=== PATIENT | female | born 1940 | race African-American/Black ===

== ENCOUNTER 2017-01-22 18:35 | Inpatient (IN) | payer MEDICARE, BC ==
[~2017-01-22] VITALS: Ht 160 cm; Wt 41.3 kg
[2017-01-22] MEDS ORDERED: SIMVASTATIN40 MG ORAL (18:48)
[2017-01-22] MEDS ORDERED: NEXIUM40 MG ORAL (18:48)
[2017-01-22] MEDS ORDERED: BENICAR5 MG ORAL (18:48)
[2017-01-22] MEDS ORDERED: KLOR-CON20 MEQ ORAL (18:48)
[2017-01-22] MEDS ORDERED: ASPIR 8181 MG ORAL (18:48)
[2017-01-22] MEDS ORDERED: B-121000 MCG PO (18:48)
[2017-01-22] MEDS ORDERED: VITAMIN D1000 UNI1 ORAL (18:48)
[2017-01-22 18:52] VITALS: BP 99/58
[2017-01-22] MEDS ORDERED: Calcium Gluconate 1gm/10ml vial IVP ONE (19:00)
[2017-01-22] MEDS ORDERED: Diltiazem 25mg/5ml IV ONE ×2 (19:00→19:15)
[2017-01-22 19:03] LABS: BASOPHILS % (AUTO) 1.4 % (0.0-2.0); EOSINOPHILS % (AUTO) 7.3 % (0.0-3.0); LYMPHOCYTES % (AUTO) 32.7 % (20.0-45.0); MEAN CORPUSCULAR HEMOGLOBIN 35.8 PG (27.0-31.0); MEAN CORPUSCULAR HGB CONC 36.3 G/DL (32.0-36.0); MEAN CORPUSCULAR VOLUME 99 FL (80-99); MEAN PLATELET VOLUME 8.7 FL (6.5-10.1); MONOCYTES % (AUTO) 17.3 % (1.0-10.0); NEUTROPHILS % (AUTO) 41.4 % (45.0-75.0); PLATELET COUNT 161 K/UL (150-450); RED BLOOD COUNT 4.45 M/UL (4.20-5.40); RED CELL DISTRIBUTION WIDTH 12.6 % (11.6-14.8); WHITE BLOOD COUNT 6.8 K/UL (4.8-10.8)
[2017-01-22 19:14] LABS: TROPONIN I < 0.30 ng/mL (<=0.30)
[2017-01-22 19:15] LABS: ALANINE AMINOTRANSFERASE 58 U/L (3-33); ANION GAP 18 (5-15); ASPARTATE AMINO TRANSFERASE 56 U/L (5-40); CALCIUM 10.2 mg/dL (8.6-10.2); CARBON DIOXIDE 25 mEQ/L (20-30); CHLORIDE 100 mEQ/L (98-107); CREATININE 1.3 mg/dL (0.5-0.9); HEMOLYSIS 15; POTASSIUM 4.2 mEQ/L (3.4-4.9); SODIUM 143 mEQ/L (135-145); TOTAL PROTEIN 7.5 g/dL (6.6-8.7)
[2017-01-22 19:25] LABS: CKMB 1.7 ng/mL (< 3.8)
[2017-01-22] MEDS ORDERED: Metoprolol 5mg/5ml Inj IVP ONE (19:30)
[2017-01-22] MEDS ORDERED: PATADAY2.5 ML OP (20:13)
[2017-01-22] MEDS ORDERED: REFRESH CLASSI1 EACH OP (20:14)
[2017-01-22] MEDS ORDERED: CENTRUM SILVER1 EAC4 PO (20:16)
[2017-01-22 20:52] VITALS: BP 111/89
--- NOTE | 2017-01-22 21:12 | Emergency Room Report ---
History of Present Illness General Chief Complaint: Chest Pain Source: Medical Record Present Illness HPI 76-year-old female presents ED complaining of chest pain. States chest pain started around 4 PM while at rest. Pain is pressure-like, left-sided, 7/10. Patient was given aspirin and nitroglycerin by EMS without significant relief. EKG shows A. fib with RVR. Patient is not aware that she has a history of A. fib. Denies shortness of breath. Denies fevers or chills or cough. Denies smoking or drug use. No other aggravating relieving factors. Denies any other associated symptoms Allergies: Coded Allergies: PENICILLINS (Verified Allergy, Mild, 08/30/10) SHELLFISH (Verified Allergy, Mild, 08/30/10) SULFA (SULFONAMIDE ANTIBIOTICS) (Verified Allergy, Mild, 08/30/10) PROCAINE (Unverified Allergy, Unknown, 01/22/17) IODINE (Verified Adverse Reaction, Severe, HYPERSENSATIVITY TO CONTRAST, ) LAST TIME PT WAS GIVEN CONTRAST, SHE HAD TO BE GIVEN HIGH DOSE CORTICOSTEROID, PER PT ORDER ADHESIVE TAPE (Verified Adverse Reaction, Intermediate, DRY, ITCHY SKIN, ) PER PT ORDER Uncoded Allergies: NOVACAINE (Allergy, Mild, 08/30/10) Patient History Past Medical History: HTN Past Surgical History: pacemaker Pertinent Family History: none Social History: Denies: alcohol use, drug use, smoking Now: No Immunizations: UTD Reviewed Nursing Documentation: PMH: Agreed, PSxH: Agreed Nursing Documentation-PMH Past Medical History: No History, Except For Hx Hypertension: Yes Hx Pacemaker: Yes Review of Systems All Other Systems: negative except mentioned in HPI Physical Exam Vital Signs Date Time Temp Pulse Resp B/P Pulse Ox O2 Delivery O2 Flow Rate FiO2 01/22/17 18:32 98.2 86 20 100/68 98 Room Air Sp02 EP Interpretation: reviewed, normal General Appearance: no apparent distress, alert, GCS 15, non-toxic Head: normocephalic, atraumatic Eyes: bilateral eye PERRL, bilateral eye normal inspection ENT: hearing grossly normal, normal pharynx, no angioedema, normal voice Neck: full range of motion, supple/symm/no masses Respiratory: chest non-tender, lungs clear, normal breath sounds, speaking full sentences Cardiovascular #1: no edema, tachycardia Cardiovascular #2: 2+ carotid (R), 2+ carotid (L), 2+ radial (R), 2+ radial (L) , 2+ dorsalis pedis (R), 2+ dorsalis pedis (L) Gastrointestinal: normal bowel sounds, non tender, soft, non-distended, no guarding, no rebound Rectal: deferred Genitourinary: normal inspection, no CVA tenderness Musculoskeletal: back normal, gait/station normal, normal range of motion, non- tender Neurologic: alert, oriented x3, responsive, motor strength/tone normal, sensory intact, speech normal Psychiatric: judgement/insight normal, memory normal, mood/affect normal, no suicidal/homicidal ideation Reflexes: 3+ bicep (R), 3+ bicep (L), 3+ tricep (R), 3+ tricep (L), 3+ knee (R) , 3+ knee (L) Skin: normal color, no rash, warm/dry, well hydrated Lymphatic: no adenopathy Procedures Critical Care Time Critical Care Time i. I feel this is a highly complex case requiring extensive working including EKG/Rhythm strip, Xray/CT/US, Blood/urine lab work, repeat exams while in ED, and administration of strong opiates/narcotics for pain control, admission to hospital or close patient follow up. Total time: 30 min bedside evaluation and treatment excludes procedures (EKG). Reason for critical care: afib wtih RVR, hypotension Possible complications: hypotension, hypertension, LA, shock, arrhythmias, metabolic acidosis, end organ damage, respiratory failure. Interventions: labs, IVFs, EKG, CXR. lopressor Course: Patient brought in for chest pain, tachycardic. EKG shows A. fib with RVR to the 150s. Patient slightly hypotensive. Patient given IV fluids. Given Lopressor. Cardioversion achieved. Troponins negative. Consultations: nursing staff, EMS, family Performed by: Dr Mello Tolerated well condition = critical j. because of unstable vital signs this patient had a condition that could potentially threaten life or limb. I feel this is a critical patient who required my full attention while patient was considered critical. Total Critical Care Time excluding procedures was greater than 35 minutes Medical Decision Making Diagnostic Impression: Primary Impression: Atrial fibrillation with RVR Additional Impression: ACS (acute coronary syndrome) ER Course Hospital Course 76-year-old F presents ED complaining of chest tightness. tachycardia Differential diagnoses include: LA/unstable angina, contusion, muscle strain, PTX, rib fracture, pneumonia, Clinical course Patient placed on stretcher. on measurement operator which shows A. fib with RVR. initial BP 98/60. given IVFs. given lopressor. After initial history and physical I ordered labs, EKG, chest x-ray labs reviewed- no leukocytosis, hemoglobin/hematocrit ok, electrolytes okay, troponins negative EKG - afib wtih RVR Chest x-ray- cardiomegaly. pacemaker Cardioversion achieved on reassessment. Case discussed with Dr. Mabry/ [place] and he agreed to accept the patient to his service for further care and support I. I feel this is a highly complex case requiring extensive working including EKG/Rhythm strip, Xray/CT/US, Blood/urine lab work, repeat exams while in ED, and administration of strong opiates/narcotics for pain control, admission to hospital or close patient follow up. Diagnosis - afib with RVR, ACS admitted to telemetry in serious condition Labs Test 01/22/17 18:49 White Blood Count 6.8 K/UL (4.8-10.8) Red Blood Count 4.45 M/UL (4.20-5.40) Hemoglobin 15.9 G/DL (12.0-16.0) Hematocrit 43.9 % (37.0-47.0) Mean Corpuscular Volume 99 FL (80-99) Mean Corpuscular Hemoglobin 35.8 PG (27.0-31.0) Mean Corpuscular Hemoglobin Concent 36.3 G/DL (32.0-36.0) Red Cell Distribution Width 12.6 % (11.6-14.8) Platelet Count 161 K/UL (150-450) Mean Platelet Volume 8.7 FL (6.5-10.1) Neutrophils (%) (Auto) 41.4 % (45.0-75.0) Lymphocytes (%) (Auto) 32.7 % (20.0-45.0) Monocytes (%) (Auto) 17.3 % (1.0-10.0) Eosinophils (%) (Auto) 7.3 % (0.0-3.0) Basophils (%) (Auto) 1.4 % (0.0-2.0) Sodium Level 143 mEQ/L (135-145) Potassium Level 4.2 mEQ/L (3.4-4.9) Chloride Level 100 mEQ/L (98-107) Carbon Dioxide Level 25 mEQ/L (20-30) Anion Gap 18 (5-15) Blood Urea Nitrogen 31 mg/dL (7-23) Creatinine 1.3 mg/dL (0.5-0.9) Estimat Glomerular Filtration Rate mL/min (>60) Glucose Level 92 mg/dL (74-106) Calcium Level 10.2 mg/dL (8.6-10.2) Total Bilirubin < 0.2 mg/dL (0.0-1.2) Aspartate Amino Transf (AST/SGOT) 56 U/L (5-40) Alanine Aminotransferase (ALT/SGPT) 58 U/L (3-33) Alkaline Phosphatase 78 U/L (35-104) Total Creatine Kinase 87 U/L (26-140) Creatine Kinase MB 1.7 ng/mL (< 3.8) Creatine Kinase MB Relative Index 1.9 Troponin I < 0.30 ng/mL (<=0.30) Pro-B-Type Natriuretic Peptide 73 pg/mL (0-450) Total Protein 7.5 g/dL (6.6-8.7) Albumin 3.9 g/dL (3.5-5.2) Globulin 3.6 g/dL Albumin/Globulin Ratio 1.0 (1.0-2.7) EKG Diagnostic Results Rate: tachycardiac Rhythm: other - afib with RVR ST Segments: no acute changes ASA given to the pt in ED: No - given by ems Rhythm Strip Diag. Results EP Interpretation: yes Rhythm: no PVC's, no ectopy Chest X-Ray Diagnostic Results EP Interpretation: Yes Findings: no pneumothorax, no acute cardiopulmonary disease, other - cardiomegaly. pacemaker Number of Views: 1 Last Vital Signs Date Time Temp Pulse Resp B/P Pulse Ox O2 Delivery O2 Flow Rate FiO2 01/22/17 19:31 132 104/59 01/22/17 18:57 20 Room Air 01/22/17 18:52 98.2 99 Status: improved Disposition: ADMITTED INPATIENT Condition: Serious Referrals: NON PHYSICIAN (PCP) MONET MELLO M.D. Jan 22, 2017 21:12
[2017-01-22] MEDS ORDERED: Morphine Sulfate 4mg/ml Inj IVP PRN (21:45)
[2017-01-22] MEDS ORDERED: Morphine Sulfate 2mg/ml Inj IVP PRN (21:45)
[2017-01-22] MEDS ORDERED: Metoprolol 25mg tab ORAL SCH ×2 (21:45)
[2017-01-22] MEDS ORDERED: Miralax 17gm pkt ORAL PRN (21:45)
[2017-01-22] MEDS ORDERED: Metoprolol 5mg/5ml Inj IVPB PRN (21:45)
--- NOTE | 2017-01-22 22:38 | History and Physical ---
History of Present Illness General Date patient seen: Jan 22, 2017 Time patient seen: 19:30 Reason for Hospitalization: Chest Pain, Afib w/ RVR Present Illness HPI 76 y/o female with pmh of HTN, HLD, pAfib, sick sinus syndrome s/p dual-chamber pacemaker implantation (March 2012), GERD, GALEN who presents with chest pain. Pt states chest pain started today after she met up with a friend for lunch. Described as pressure-like and associated with palpitations. No associated SOB, f/c, n/v, diaphoresis. No radiation of pain. Pt states she has had similar episodes before. Pt also c/o chronic abd pain described as burning sensation. Pt states she does not do much activity/exercise. She does get fatigued after walking abt 6-7min. In ED, pt noted to be in Afib w/ HR up to 140s. Given MTP 5m IVP w/ HR improvement to 110s. Allergies: Coded Allergies: PENICILLINS (Verified Allergy, Mild, 08/30/10) SHELLFISH (Verified Allergy, Mild, 08/30/10) SULFA (SULFONAMIDE ANTIBIOTICS) (Verified Allergy, Mild, 08/30/10) PROCAINE (Unverified Allergy, Unknown, 01/22/17) IODINE (Verified Adverse Reaction, Severe, HYPERSENSATIVITY TO CONTRAST, ) LAST TIME PT WAS GIVEN CONTRAST, SHE HAD TO BE GIVEN HIGH DOSE CORTICOSTEROID, PER PT ORDER ADHESIVE TAPE (Verified Adverse Reaction, Intermediate, DRY, ITCHY SKIN, ) PER PT ORDER Uncoded Allergies: NOVACAINE (Allergy, Mild, 08/30/10) Medication History Scheduled Aspirin* (Aspir 81*), 81 MG ORAL DAILY, (Reported) Cholecalciferol (Vitamin D3)* (Vitamin D*), 2,000 UNITS ORAL DAILY, (Reported) Cyanocobalamin (Vitamin B-12) (B-12), 1,000 MCG PO DAILY, (Reported) Esomeprazole Magnesium (Nexium), 40 MG ORAL DAILY, (Reported) Mu-Vits-Min Th/Lycopene/Lutein (Centrum Silver Tablet), 1 EACH PO DAILY, ( Reported) Olmesartan Medoxomil (Benicar), 5 MG ORAL DAILY, (Reported) Olopatadine Hcl (Pataday), 2.5 ML OP DAILY, (Reported) Polyvinyl Alcohol/Povidone/Pf (Refresh Classic Eye Drops), 1 EACH OP BID, ( Reported) Simvastatin (Zocor), 40 MG ORAL BEDTIME, (Reported) Patient History Healthcare decision maker Resuscitation status Advanced Directive on File No Past Medical/Surgical History Past Medical/Surgical History: (1) GALEN (obstructive sleep apnea) (2) GERD (gastroesophageal reflux disease) (3) History of cholecystectomy (4) Paroxysmal a-fib (5) Sick sinus syndrome (6) Pacemaker (7) HTN (hypertension) (8) HLD (hyperlipidemia) Family History Family History: FH: stomach cancer Social History Social History: (1) No significant social history Review of Systems ROS Narrative CONSTITUTIONAL: No weight loss, fever, chills, weakness, +fatigue HEENT: Eyes: No visual loss, blurred vision, double vision or yellow sclerae. Ears, Nose, Throat: No hearing loss, sneezing, congestion, runny nose or sore throat. SKIN: No rash or itching. CARDIOVASCULAR: No chest pain, chest pressure or chest discomfort. No palpitations or edema. RESPIRATORY: No shortness of breath, cough or sputum. GASTROINTESTINAL: No anorexia, nausea, vomiting or diarrhea. No abdominal pain or blood. NEUROLOGICAL: No headache, dizziness, syncope, paralysis, ataxia, numbness or tingling in the extremities. No change in bowel or bladder control. MUSCULOSKELETAL: No muscle, back pain, joint pain or stiffness. HEMATOLOGIC: No anemia, bleeding or bruising. LYMPHATICS: No enlarged nodes. No history of splenectomy. PSYCHIATRIC: No history of depression or anxiety. ENDOCRINOLOGIC: No reports of sweating, cold or heat intolerance. No polyuria or polydipsia. ALLERGIES: No history of asthma, hives, eczema or rhinitis. Physical Exam Physical Exam Narrative General: alert, cooperative, no distress, appears stated age Head: normocephalic, without obvious abnormality, atraumatic Eyes: conjunctivae/corneas clear. PERRL, EOM's intact Throat: lips, mucosa, and tongue normal. MMM Neck: supple, symmetrical, trachea midline, and no JVD Lungs: clear to auscultation bilaterally Heart: irregularly irregular rhythm, S1, S2 normal, no murmur, click, rub or gallop Abdomen: soft, non-tender, non-distended, bowel sounds normal; no masses or organomegaly Extremities: extremities normal, atraumatic, no cyanosis or edema Pulses: 2+ and symmetric Skin: skin color, texture, turgor normal; no rashes or lesions Neurologic: grossly normal, no focal deficits Last 24 Hour Vital Signs Date Time Temp Pulse Resp B/P Pulse Ox O2 Delivery O2 Flow Rate FiO2 01/22/17 19:31 132 104/59 01/22/17 18:57 130 20 Room Air 01/22/17 18:52 98.2 130 20 99/58 99 Room Air 01/22/17 18:32 98.2 86 20 100/68 98 Room Air Laboratory Tests Test 01/22/17 18:49 White Blood Count 6.8 K/UL (4.8-10.8) Red Blood Count 4.45 M/UL (4.20-5.40) Hemoglobin 15.9 G/DL (12.0-16.0) Hematocrit 43.9 % (37.0-47.0) Mean Corpuscular Volume 99 FL (80-99) Mean Corpuscular Hemoglobin 35.8 PG (27.0-31.0) H Mean Corpuscular Hemoglobin Concent 36.3 G/DL (32.0-36.0) H Red Cell Distribution Width 12.6 % (11.6-14.8) Platelet Count 161 K/UL (150-450) Mean Platelet Volume 8.7 FL (6.5-10.1) Neutrophils (%) (Auto) 41.4 % (45.0-75.0) L Lymphocytes (%) (Auto) 32.7 % (20.0-45.0) Monocytes (%) (Auto) 17.3 % (1.0-10.0) H Eosinophils (%) (Auto) 7.3 % (0.0-3.0) H Basophils (%) (Auto) 1.4 % (0.0-2.0) Sodium Level 143 mEQ/L (135-145) Potassium Level 4.2 mEQ/L (3.4-4.9) Chloride Level 100 mEQ/L (98-107) Carbon Dioxide Level 25 mEQ/L (20-30) Anion Gap 18 (5-15) H Blood Urea Nitrogen 31 mg/dL (7-23) H Creatinine 1.3 mg/dL (0.5-0.9) H Estimat Glomerular Filtration Rate mL/min (>60) Glucose Level 92 mg/dL (74-106) Calcium Level 10.2 mg/dL (8.6-10.2) Total Bilirubin < 0.2 mg/dL (0.0-1.2) Aspartate Amino Transf (AST/SGOT) 56 U/L (5-40) H Alanine Aminotransferase (ALT/SGPT) 58 U/L (3-33) H Alkaline Phosphatase 78 U/L (35-104) Total Creatine Kinase 87 U/L (26-140) Creatine Kinase MB 1.7 ng/mL (< 3.8) Creatine Kinase MB Relative Index 1.9 Troponin I < 0.30 ng/mL (<=0.30) Pro-B-Type Natriuretic Peptide 73 pg/mL (0-450) Total Protein 7.5 g/dL (6.6-8.7) Albumin 3.9 g/dL (3.5-5.2) Globulin 3.6 g/dL Albumin/Globulin Ratio 1.0 (1.0-2.7) Height (Feet): 5 Height (Inches): 3.00 Weight (Pounds): 197 Medications Current Medications Medications (Trade) Dose Ordered Sig/Kenneth Route PRN Reason Start Time Stop Time Status Last Admin Dose Admin Acetaminophen (Tylenol) 650 mg Q4H PRN ORAL Mild Pain (Pain Scale 1-3) 01/22/17 21:45 02/21/17 21:44 UNV Aspirin (Ecotrin) 325 mg DAILY ORAL 01/23/17 09:00 02/22/17 08:59 UNV Bisacodyl (Dulcolax) 10 mg DAILYPRN PRN RECTAL Constipation 01/22/17 21:45 02/21/17 21:44 UNV Dextrose (Dextrose 50%) STAT PRN IV Hypoglycemia 01/22/17 21:45 02/21/17 21:44 UNV Diphenhydramine HCl (Benadryl) 25 mg Q6H PRN ORAL Itching/Pruritis 01/22/17 21:45 02/21/17 21:44 UNV Docusate Sodium (Colace) 100 mg EVERY 12 HOURS ORAL 01/23/17 09:00 02/22/17 08:59 UNV Heparin Sodium (Porcine) (Heparin 5000 units/ml) 5,000 units EVERY 8 HOURS SUBQ 01/22/17 22:00 02/21/17 21:59 UNV Metoprolol Tartrate (Lopressor) 5 mg Q6HR PRN IVPB HR>140 01/22/17 21:45 02/21/17 21:44 UNV Metoprolol Tartrate (Lopressor) 25 mg Q6HR ORAL 01/22/17 21:45 02/21/17 21:44 UNV Morphine Sulfate (Morphine Sulfate) 2 mg Q4H PRN IVP Moderate Pain (Pain Scale 4-6) 01/22/17 21:45 01/29/17 21:44 UNV Morphine Sulfate (Morphine Sulfate) 4 mg Q4H PRN IVP Severe Pain (Pain Scale 7-10) 01/22/17 21:45 01/29/17 21:44 UNV Ondansetron HCl (Zofran) 4 mg Q6H PRN IVP Nausea & Vomiting 01/22/17 21:45 02/21/17 21:44 UNV Pantoprazole (Protonix) 40 mg DAILY ORAL 01/23/17 09:00 02/22/17 08:59 UNV Polyethylene Glycol (Miralax) 17 gm DAILYPRN PRN ORAL Constipation 01/22/17 21:45 02/21/17 21:44 UNV Assessment/Plan Problem List: (1) Atrial fibrillation with RVR ICD Codes: I48.91 - Unspecified atrial fibrillation SNOMED: 486660323550069 (2) Chest pain ICD Codes: R07.9 - Chest pain, unspecified SNOMED: 29459169 (3) Sick sinus syndrome ICD Codes: I49.5 - Sick sinus syndrome SNOMED: 12057482 (4) Pacemaker ICD Codes: Z95.0 - Presence of cardiac pacemaker SNOMED: 575708479, 570494247 (5) HTN (hypertension) ICD Codes: I10 - Essential (primary) hypertension SNOMED: 93901268 (6) HLD (hyperlipidemia) ICD Codes: E78.5 - Hyperlipidemia, unspecified SNOMED: 50901770 Status: stable Assessment/Plan Admit to inpt Monitor on tele Trend trop/EKG Check TTE Start MTP 25mg q6h MTP 5mg IVPB q6h PRN SBP>140 Cont home meds Cardiology consult ASA 325mg qd Pt is not on anticoagulation 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 Unclear why she is not as CHADS2-vasc score of 4 Pain control, bowel regimen, supportive care DVT Prophylaxis: HSQ Code Status: Full Hospital Classification Declaration: Based on this initial evaluation, and depending on the patient's clinical course, I anticipate that this patient will require hospitalization for 2-3 days for chest pain, Afib w/ RVR, and close respiratory/hemodynamic monitoring. Disposition: Once the patient is stable to leave the hospital, I anticipate the patient will likely be discharged to the following environment: home with HH vs SNF I spent 70 minutes on this patient's case, and 37 minutes were dedicated to counseling and/or care coordination. Discussed with patient/family, nursing staff, SW/CM, cardiology regarding clinical status, treatment course, and disposition planning. Time of note may not reflect time of encounter. Charlotte Orellana M.D. Jan 22, 2017 22:38
[2017-01-22 22:52] VITALS: BP 125/89
[2017-01-22] MEDS: Heparin 5000 units/ml inj SUBQ SCH (23:07)
[2017-01-22 23:30] VITALS: BP 95/65
[2017-01-23] VITALS: BP 95/55
[2017-01-23] MEDS: Metoprolol 25mg tab ORAL SCH ×4 (00:53→17:50)
[2017-01-23 02:31] LABS: TROPONIN I < 0.30 ng/mL (<=0.30)
[2017-01-23] MEDS: Heparin 5000 units/ml inj SUBQ SCH ×3 (05:35→21:52)
[2017-01-23 08:00] VITALS: BP 117/61
[2017-01-23] MEDS: Docusate 100mg tablet ORAL SCH ×2 (08:18→20:56)
[2017-01-23] MEDS: Aspirin EC 325mg tab ORAL SCH (08:18)
[2017-01-23] MEDS: Vitamin D 1000 IU Tab ORAL SCH (08:18)
[2017-01-23 09:24] LABS: BASOPHILS % (AUTO) 0.9 % (0.0-2.0); LYMPHOCYTES % (AUTO) 35.7 % (20.0-45.0); MEAN CORPUSCULAR HEMOGLOBIN 32.5 PG (27.0-31.0); MEAN CORPUSCULAR HGB CONC 32.5 G/DL (32.0-36.0); MEAN CORPUSCULAR VOLUME 100 FL (80-99); MEAN PLATELET VOLUME 9.5 FL (6.5-10.1); MONOCYTES % (AUTO) 16.4 % (1.0-10.0); NEUTROPHILS % (AUTO) 37.9 % (45.0-75.0); PLATELET COUNT 173 K/UL (150-450); RED CELL DISTRIBUTION WIDTH 12.9 % (11.6-14.8)
[2017-01-23 09:48] LABS: TROPONIN I < 0.30 ng/mL (<=0.30)
--- NOTE | 2017-01-23 09:50 | Diagnostic Imaging Report ---
Indication: Chest pain Technique: One view of the chest Comparison: none Findings: The heart is enlarged. The lungs and pleural spaces are clear.. There is a bifocal left chest pacemaker. Impression: Cardiomegaly No acute process
[2017-01-23 09:51] LABS: ANION GAP 16 (5-15); CALCIUM 9.9 mg/dL (8.6-10.2); CARBON DIOXIDE 25 mEQ/L (20-30); CHLORIDE 105 mEQ/L (98-107); CHOLESTEROL 188 mg/dL (< 200); CHOLESTEROL/HDL RATIO 4.6 (3.3-4.4); CREATININE 1.1 mg/dL (0.5-0.9); HEMOLYSIS 11; LDL CHOLESTEROL (CALC.) 108 mg/dL (60-99); MAGNESIUM 1.9 mg/dL (1.7-2.5); PHOSPHORUS 3.7 mg/dL (2.5-4.8); POTASSIUM 4.3 mEQ/L (3.4-4.9); SODIUM 146 mEQ/L (135-145)
[2017-01-23 12:00] VITALS: BP 112/68
--- NOTE | 2017-01-23 14:16 | Cardiology Progress Note ---
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 Bc Hicks Objective Last 24 Hour Vital Signs Date Time Temp Pulse Resp B/P Pulse Ox O2 Delivery O2 Flow Rate FiO2 01/23/17 12:09 69 112/68 01/23/17 12:00 68 01/23/17 12:00 97.5 69 20 112/68 98 Room Air 01/23/17 08:00 97.2 70 20 117/61 97 Room Air 01/23/17 08:00 61 01/23/17 05:36 120 86/55 01/23/17 04:00 100 01/23/17 01:43 127 01/23/17 00:53 120 112/65 01/23/17 00:00 97.3 119 20 95/55 96 Room Air 01/22/17 23:30 98.2 120 28 95/65 99 Room Air 01/22/17 22:52 98.2 120 28 125/89 99 Room Air 01/22/17 22:30 98.2 120 27 125/89 99 Room Air 01/22/17 20:52 98.2 111 25 111/89 99 Room Air 01/22/17 19:31 132 104/59 01/22/17 18:57 130 20 Room Air 01/22/17 18:52 98.2 130 20 99/58 99 Room Air 01/22/17 18:32 98.2 86 20 100/68 98 Room Air Intake and Output 01/22/17 01/23/17 19:00 07:00 Intake Total 1560 ml Output Total 350 ml Balance 1210 ml Intake Oral 500 ml IV Total 1000 ml Other 60 ml Output Urine Total 350 ml # Voids 5 # Bowel Movements 3 Laboratory Tests Test 01/22/17 18:49 01/23/17 01:51 01/23/17 08:40 White Blood Count 6.8 K/UL (4.8-10.8) 6.0 K/UL (4.8-10.8) Red Blood Count 4.45 M/UL (4.20-5.40) 4.10 M/UL (4.20-5.40) L Hemoglobin 15.9 G/DL (12.0-16.0) 13.3 G/DL (12.0-16.0) Hematocrit 43.9 % (37.0-47.0) 41.0 % (37.0-47.0) Mean Corpuscular Volume 99 FL (80-99) 100 FL (80-99) H Mean Corpuscular Hemoglobin 35.8 PG (27.0-31.0) H 32.5 PG (27.0-31.0) H Mean Corpuscular Hemoglobin Concent 36.3 G/DL (32.0-36.0) H 32.5 G/DL (32.0-36.0) Red Cell Distribution Width 12.6 % (11.6-14.8) 12.9 % (11.6-14.8) Platelet Count 161 K/UL (150-450) 173 K/UL (150-450) Mean Platelet Volume 8.7 FL (6.5-10.1) 9.5 FL (6.5-10.1) Neutrophils (%) (Auto) 41.4 % (45.0-75.0) L 37.9 % (45.0-75.0) L Lymphocytes (%) (Auto) 32.7 % (20.0-45.0) 35.7 % (20.0-45.0) Monocytes (%) (Auto) 17.3 % (1.0-10.0) H 16.4 % (1.0-10.0) H Eosinophils (%) (Auto) 7.3 % (0.0-3.0) H 9.0 % (0.0-3.0) H Basophils (%) (Auto) 1.4 % (0.0-2.0) 0.9 % (0.0-2.0) Sodium Level 143 mEQ/L (135-145) 146 mEQ/L (135-145) H Potassium Level 4.2 mEQ/L (3.4-4.9) 4.3 mEQ/L (3.4-4.9) Chloride Level 100 mEQ/L (98-107) 105 mEQ/L (98-107) Carbon Dioxide Level 25 mEQ/L (20-30) 25 mEQ/L (20-30) Anion Gap 18 (5-15) H 16 (5-15) H Blood Urea Nitrogen 31 mg/dL (7-23) H 28 mg/dL (7-23) H Creatinine 1.3 mg/dL (0.5-0.9) H 1.1 mg/dL (0.5-0.9) H Estimat Glomerular Filtration Rate mL/min (>60) mL/min (>60) Glucose Level 92 mg/dL (74-106) 106 mg/dL (74-106) Calcium Level 10.2 mg/dL (8.6-10.2) 9.9 mg/dL (8.6-10.2) Total Bilirubin < 0.2 mg/dL (0.0-1.2) Aspartate Amino Transf (AST/SGOT) 56 U/L (5-40) H Alanine Aminotransferase (ALT/SGPT) 58 U/L (3-33) H Alkaline Phosphatase 78 U/L (35-104) Total Creatine Kinase 87 U/L (26-140) Creatine Kinase MB 1.7 ng/mL (< 3.8) Creatine Kinase MB Relative Index 1.9 Troponin I < 0.30 ng/mL (<=0.30) < 0.30 ng/mL (<=0.30) < 0.30 ng/mL (<=0.30) Pro-B-Type Natriuretic Peptide 73 pg/mL (0-450) Total Protein 7.5 g/dL (6.6-8.7) Albumin 3.9 g/dL (3.5-5.2) Globulin 3.6 g/dL Albumin/Globulin Ratio 1.0 (1.0-2.7) Phosphorus Level 3.7 mg/dL (2.5-4.8) Magnesium Level 1.9 mg/dL (1.7-2.5) Triglycerides Level 195 mg/dL (< 150) H Cholesterol Level 188 mg/dL (< 200) LDL Cholesterol 108 mg/dL (60-99) H HDL Cholesterol 41 mg/dL (> 60) Cholesterol/HDL Ratio 4.6 (3.3-4.4) H Thyroid Stimulating Hormone (TSH) 2.010 uIU/mL (0.300-4.500) ALEXYS NORTH Jan 23, 2017 14:16
[2017-01-23 16:00] VITALS: BP 104/68
--- NOTE | 2017-01-23 18:50 | General Progress Note ---
Assessment/Plan Status: doing well, stable Assessment/Plan Assessment/Plan Problem List: (1) Atrial fibrillation with RVR ICD Codes: I48.91 - Unspecified atrial fibrillation SNOMED: 902922636722725 (2) Chest pain ICD Codes: R07.9 - Chest pain, unspecified SNOMED: 57567351 (3) Sick sinus syndrome ICD Codes: I49.5 - Sick sinus syndrome SNOMED: 25557641 (4) Pacemaker ICD Codes: Z95.0 - Presence of cardiac pacemaker SNOMED: 824249322, 396104349 (5) HTN (hypertension) ICD Codes: I10 - Essential (primary) hypertension SNOMED: 96302707 (6) HLD (hyperlipidemia) ICD Codes: E78.5 - Hyperlipidemia, unspecified SNOMED: 23091107 Status: stable Assessment/Plan Cardiac Telemetry: patient has been NSR: Trend trop/EKG: negative for ACS TTE- with EF of 60-65% Start MTP 25mg q6h MTP 5mg IVPB q6h PRN SBP>140 Cont home meds Cardiology consult ASA 325mg qd Pt is not on anticoagulation per review of [employer] meds. Unclear why she is not as CHADS2-vasc score of 4. Discussed with central office mechanic, Dr. Vogel, who states that she should be evaluated by her primary central office mechanic as an outpatient this week for anticoagulation regimen. Until then, ASA 325mg PO daily Pain control, bowel regimen, supportive care DVT Prophylaxis: HSQ Code Status: Full Hospital Classification Declaration: Based on this initial evaluation, and depending on the patient's clinical course, I anticipate that this patient will require hospitalization for 2-3 days for chest pain, Afib w/ RVR, and close respiratory/hemodynamic monitoring. Disposition: Once the patient is stable to leave the hospital, I anticipate the patient will likely be discharged to the following environment: home Subjective Date patient seen: Jan 23, 2017 Time patient seen: 18:00 ROS Limited/Unobtainable: No Constitutional: Denies: chills, diaphoresis HEENT: Denies: blurred vision, eye pain Cardiovascular: Denies: chest pain, edema Respiratory: Denies: cough, orthopnea Gastrointestinal/Abdominal: Reports: no symptoms, Denies: abdomen distended, abdominal pain, constipated Genitourinary: Denies: burning, discharge Neurologic/Psychiatric: Denies: anxiety, depressed Endocrine: Reports: excessive sweating, other - decreased energy for months, unexplained weight gain Hematologic/Lymphatic: Denies: anemia, easy bleeding Allergies: Coded Allergies: PENICILLINS (Verified Allergy, Mild, 08/30/10) SHELLFISH (Verified Allergy, Mild, 08/30/10) SULFA (SULFONAMIDE ANTIBIOTICS) (Verified Allergy, Mild, 08/30/10) PROCAINE (Unverified Allergy, Unknown, 01/22/17) IODINE (Verified Adverse Reaction, Severe, HYPERSENSATIVITY TO CONTRAST, ) LAST TIME PT WAS GIVEN CONTRAST, SHE HAD TO BE GIVEN HIGH DOSE CORTICOSTEROID, PER PT ORDER ADHESIVE TAPE (Verified Adverse Reaction, Intermediate, DRY, ITCHY SKIN, ) PER PT ORDER Uncoded Allergies: NOVACAINE (Allergy, Mild, 08/30/10) Objective Last 24 Hour Vital Signs Date Time Temp Pulse Resp B/P Pulse Ox O2 Delivery O2 Flow Rate FiO2 01/23/17 17:50 73 104/68 01/23/17 16:00 68 01/23/17 16:00 97.7 73 20 104/68 97 Room Air 01/23/17 12:09 69 112/68 01/23/17 12:00 68 01/23/17 12:00 97.5 69 20 112/68 98 Room Air 01/23/17 08:00 97.2 70 20 117/61 97 Room Air 01/23/17 08:00 61 01/23/17 05:36 120 86/55 01/23/17 04:00 100 01/23/17 01:43 127 01/23/17 00:53 120 112/65 01/23/17 00:00 97.3 119 20 95/55 96 Room Air 01/22/17 23:30 98.2 120 28 95/65 99 Room Air 01/22/17 22:52 98.2 120 28 125/89 99 Room Air 01/22/17 22:30 98.2 120 27 125/89 99 Room Air 01/22/17 20:52 98.2 111 25 111/89 99 Room Air 01/22/17 19:31 132 104/59 01/22/17 18:57 130 20 Room Air 01/22/17 18:52 98.2 130 20 99/58 99 Room Air Intake and Output 01/22/17 01/23/17 19:00 07:00 Intake Total 1560 ml Output Total 350 ml Balance 1210 ml Intake Oral 500 ml IV Total 1000 ml Other 60 ml Output Urine Total 350 ml # Voids 5 # Bowel Movements 3 Laboratory Tests 01/22/17 18:49: White Blood Count 6.8, Red Blood Count 4.45, Hemoglobin 15.9, Hematocrit 43.9, Mean Corpuscular Volume 99, Mean Corpuscular Hemoglobin 35.8H, Mean Corpuscular Hemoglobin Concent 36.3H, Red Cell Distribution Width 12.6, Platelet Count 161, Mean Platelet Volume 8.7, Neutrophils (%) (Auto) 41.4L, Lymphocytes (%) (Auto) 32.7, Monocytes (%) (Auto) 17.3H, Eosinophils (%) (Auto) 7.3H, Basophils (%) ( Auto) 1.4, Sodium Level 143, Potassium Level 4.2, Chloride Level 100, Carbon Dioxide Level 25, Anion Gap 18H, Blood Urea Nitrogen 31H, Creatinine 1.3H, Estimat Glomerular Filtration Rate , Glucose Level 92, Calcium Level 10.2, Total Bilirubin < 0.2, Aspartate Amino Transf (AST/SGOT) 56H, Alanine Aminotransferase (ALT/SGPT) 58H, Alkaline Phosphatase 78, Total Creatine Kinase 87, Creatine Kinase MB 1.7, Creatine Kinase MB Relative Index 1.9, Troponin I < 0.30, Pro-B-Type Natriuretic Peptide 73, Total Protein 7.5, Albumin 3.9, Globulin 3.6, Albumin/Globulin Ratio 1.0 01/23/17 01:51: Troponin I < 0.30 01/23/17 08:40: White Blood Count 6.0, Red Blood Count 4.10L, Hemoglobin 13.3, Hematocrit 41.0, Mean Corpuscular Volume 100H, Mean Corpuscular Hemoglobin 32.5H, Mean Corpuscular Hemoglobin Concent 32.5, Red Cell Distribution Width 12.9, Platelet Count 173, Mean Platelet Volume 9.5, Neutrophils (%) (Auto) 37.9L, Lymphocytes ( %) (Auto) 35.7, Monocytes (%) (Auto) 16.4H, Eosinophils (%) (Auto) 9.0H, Basophils (%) (Auto) 0.9, Sodium Level 146H, Potassium Level 4.3, Chloride Level 105, Carbon Dioxide Level 25, Anion Gap 16H, Blood Urea Nitrogen 28H, Creatinine 1.1H, Estimat Glomerular Filtration Rate , Glucose Level 106, Calcium Level 9.9, Troponin I < 0.30, Phosphorus Level 3.7, Magnesium Level 1.9 , Triglycerides Level 195H, Cholesterol Level 188, LDL Cholesterol 108H, HDL Cholesterol 41, Cholesterol/HDL Ratio 4.6H, Thyroid Stimulating Hormone (TSH) 2.010 Height (Feet): 5 Height (Inches): 3.00 Weight (Pounds): 91 General Appearance: WD/WN, no apparent distress, alert EENT: PERRL/EOMI, normal ENT inspection Neck: non-tender, normal alignment, supple Cardiovascular: normal peripheral pulses, normal rate, regular rhythm Respiratory/Chest: chest wall non-tender, lungs clear, normal breath sounds Abdomen: normal bowel sounds, non tender, soft Pelvis: normal external exam, normal rectal exam Extremities: normal range of motion Edema: no edema noted Arm (L), no edema noted Arm (R), no edema noted Leg (L), no edema noted Leg (R), no edema noted Pedal (L), no edema noted Pedal (R), no edema noted Generalized Neurologic: manager testing II-XII grossly normal, no motor/sensory deficits, alert, oriented x 3 Skin: normal pigmentation, warm/dry Lymphatic: normal anterior cervical (L), normal anterior cervical (R), normal axillary (L), normal axillary (R), normal inguinal (L), normal inguinal (R), normal other, normal posterior cervical (L), normal posterior cervical (R), normal submandibular (L), normal submandibular (R), normal supraclavicular (L), normal supraclavicular (R) Objective Laboratory Tests Test 01/22/17 18:49 01/23/17 01:51 01/23/17 08:40 White Blood Count 6.8 K/UL (4.8-10.8) 6.0 K/UL (4.8-10.8) Red Blood Count 4.45 M/UL (4.20-5.40) 4.10 M/UL (4.20-5.40) L Hemoglobin 15.9 G/DL (12.0-16.0) 13.3 G/DL (12.0-16.0) Hematocrit 43.9 % (37.0-47.0) 41.0 % (37.0-47.0) Mean Corpuscular Volume 99 FL (80-99) 100 FL (80-99) H Mean Corpuscular Hemoglobin 35.8 PG (27.0-31.0) H 32.5 PG (27.0-31.0) H Mean Corpuscular Hemoglobin Concent 36.3 G/DL (32.0-36.0) H 32.5 G/DL (32.0-36.0) Red Cell Distribution Width 12.6 % (11.6-14.8) 12.9 % (11.6-14.8) Platelet Count 161 K/UL (150-450) 173 K/UL (150-450) Mean Platelet Volume 8.7 FL (6.5-10.1) 9.5 FL (6.5-10.1) Neutrophils (%) (Auto) 41.4 % (45.0-75.0) L 37.9 % (45.0-75.0) L Lymphocytes (%) (Auto) 32.7 % (20.0-45.0) 35.7 % (20.0-45.0) Monocytes (%) (Auto) 17.3 % (1.0-10.0) H 16.4 % (1.0-10.0) H Eosinophils (%) (Auto) 7.3 % (0.0-3.0) H 9.0 % (0.0-3.0) H Basophils (%) (Auto) 1.4 % (0.0-2.0) 0.9 % (0.0-2.0) Sodium Level 143 mEQ/L (135-145) 146 mEQ/L (135-145) H Potassium Level 4.2 mEQ/L (3.4-4.9) 4.3 mEQ/L (3.4-4.9) Chloride Level 100 mEQ/L (98-107) 105 mEQ/L (98-107) Carbon Dioxide Level 25 mEQ/L (20-30) 25 mEQ/L (20-30) Anion Gap 18 (5-15) H 16 (5-15) H Blood Urea Nitrogen 31 mg/dL (7-23) H 28 mg/dL (7-23) H Creatinine 1.3 mg/dL (0.5-0.9) H 1.1 mg/dL (0.5-0.9) H Estimat Glomerular Filtration Rate mL/min (>60) mL/min (>60) Glucose Level 92 mg/dL (74-106) 106 mg/dL (74-106) Calcium Level 10.2 mg/dL (8.6-10.2) 9.9 mg/dL (8.6-10.2) Total Bilirubin < 0.2 mg/dL (0.0-1.2) Aspartate Amino Transf (AST/SGOT) 56 U/L (5-40) H Alanine Aminotransferase (ALT/SGPT) 58 U/L (3-33) H Alkaline Phosphatase 78 U/L (35-104) Total Creatine Kinase 87 U/L (26-140) Creatine Kinase MB 1.7 ng/mL (< 3.8) Creatine Kinase MB Relative Index 1.9 Troponin I < 0.30 ng/mL (<=0.30) < 0.30 ng/mL (<=0.30) < 0.30 ng/mL (<=0.30) Pro-B-Type Natriuretic Peptide 73 pg/mL (0-450) Total Protein 7.5 g/dL (6.6-8.7) Albumin 3.9 g/dL (3.5-5.2) Globulin 3.6 g/dL Albumin/Globulin Ratio 1.0 (1.0-2.7) Phosphorus Level 3.7 mg/dL (2.5-4.8) Magnesium Level 1.9 mg/dL (1.7-2.5) Triglycerides Level 195 mg/dL (< 150) H Cholesterol Level 188 mg/dL (< 200) LDL Cholesterol 108 mg/dL (60-99) H HDL Cholesterol 41 mg/dL (> 60) Cholesterol/HDL Ratio 4.6 (3.3-4.4) H Thyroid Stimulating Hormone (TSH) 2.010 uIU/mL (0.300-4.500) CHARLOTTE ALVARADO N.P. Jan 23, 2017 18:50
--- NOTE | 2017-01-23 18:55 | Discharge Instructions ---
Discharge Instructions Discharge Instructions Follow up with: Dr. Michael and Dr. Hicks Call MD/Return to Hospital if: you have chest pain, shortness of breath Diet: 2 GM sodium (low sodium), 4 GM sodium (no salt added) Resume Normal Activity?: Yes Activity: as tolerated Follow Up Orders Please go to primary doctor- Doctor Michael for ongoing management of symptoms of lack of energy, weight gain. TSH was normal. Please go to cardiology- Dr. Timothy Hicks for ongoing management of atrial fibrillation. Ask cardiology if you should be on terminologist anticoagulation. Dr. Vogel saw you in the hospital but states she wants your primary project officer to make that decision. We as the internal medicine team from the hospital, recommend you take Aspirin 325mg PO daily until you see Dr. Hicks. You should also get a pharmacologic stress test of the heart. Your 2D Echo showed at eject fraction of 60-65%. For Congestive Heart Failure Reminder Report to your physician any weight gain of 5 pounds or more in one week. CHARLOTTE ALVARADO N.P. Jan 23, 2017 18:55
--- NOTE | 2017-01-23 19:03 | Discharge Summary ---
Discharge Summary Hospital Course Date of Admission Jan 22, 2017 at 21:23 Date of Discharge 01/24/17 Admitting Diagnosis Acute coronary syndrome Reason for Hospitalization: atrial fibrillation with RVR, chest pain rule out Acute coronary syndrome HPI Maddi Low is a 76 year old female who was admitted on Jan 22, 2017 at 21: 23 for Acute Coronary Syndrome. She was brought to the ER for palpitations, shortness of breath. In the ER, she was found to be in atrial fibrillation with RVR. Diltiazem was given IVP and patient's rhythm returned to NSR. Initial workup was negative for ACS, including negative troponin level, CXR, and EKG free of ST elevation of inversion. Consultations Dr. Vogel of Cardiology Hospital Course Patient was admitted to hospital overnight. Troponin level were negative x 3. Patient's heart rate remained in sinus rhythm on cardiac monitoring. 2D echo was performed, showing EF of 60-65%. Patient was evaluated by cardiology, Dr. Vogel, who states that patient can be followed up by her primary condenser tube tender , Dr. Hicks this week and recommends stress test within the next 2 weeks as well as consultation for anticoagulation. Patient was started on Aspirin 325mg PO. She was instructed to follow-up with her PCP, Dr. Michael this week. She is instructed to return if her chest pain recurs, has shortness of breath, or other change of symptoms. Discharge Medications Continued Medications: Cholecalciferol (Vitamin D3)* (Vitamin D*) 1,000 Unit Tablet 2000 UNITS ORAL DAILY, #30 TAB 0 Refills Cyanocobalamin (Vitamin B-12) (B-12) 1,000 Mcg Tablet.er 1000 MCG PO DAILY, TAB Esomeprazole Magnesium (Nexium) 40 Mg Capsule.dr 40 MG ORAL DAILY, CAP Mu-Vits-Min Th/Lycopene/Lutein (Centrum Silver Tablet) 1 Each Tablet 1 EACH PO DAILY, TAB Olmesartan Medoxomil (Benicar) 5 Mg Tablet 5 MG ORAL DAILY, TAB Olopatadine Hcl (Pataday) 2.5 Ml Drops 2.5 ML OP DAILY INSERT 1 DROP INTO EACH EYE EVERY MORNING Polyvinyl Alcohol/Povidone/Pf (Refresh Classic Eye Drops) 1 Each Droperette 1 EACH OP BID Simvastatin (Zocor) 40 Mg Tablet 40 MG ORAL BEDTIME, TAB Discontinued Medications: Aspirin* (Aspir 81*) 81 Mg Tablet. 81 MG ORAL DAILY, TAB Discharge Condition Upon Discharge: improving Discharge Disposition Patient was discharged to home. Discharge Diagnoses: (1) Chest pain (2) GERD (gastroesophageal reflux disease) (3) Paroxysmal a-fib Discharge Instructions Discharge Instructions Follow up with: Dr. Michael and Dr. Hicks Call MD/Return to Hospital if: you have chest pain, shortness of breath Activity: as tolerated CHARLOTTE ALVARADO N.P. Jan 23, 2017 19:03
[2017-01-23 20:00] VITALS: BP 114/70
[2017-01-23 21:01] VITALS: BP 114/70
--- NOTE | 2017-01-23 21:27 | Consultation ---
DATE OF CONSULTATION: 01/23/2017 CARDIOLOGY CONSULTATION: IDENTIFICATION: This is a 76-year-old female. REASON FOR EVALUATION: Chest pain and paroxysmal atrial fibrillation. HISTORY OF PRESENT ILLNESS: The patient is a very pleasant 76-year-old female, who yesterday when she was coming out from the [facility] felt severe pressure in her left side radiating to her throat and indeed continued to bother her when she was in the emergency department also. Only after they gave the medications, she felt better and now she feels free of pain. The patient has history of pacemaker put in 2011. The pacemaker was put by Dr. Timothy Hicks. She is not sure if she is had this previous episodes of atrial fibrillation, but she does not remember having episodes of atrial fibrillation. She is also not sure why she is not taking blood thinner. She is only on aspirin and she is not aware. Nobody explained to her if she should be on blood thinner or not. She does not have any history of bleeding as far as I question her. PAST MEDICAL HISTORY: Significant for hypertension and obesity. She does not have diabetes. No previous history of coronary artery disease. PAST SURGICAL HISTORY: Remarkable for pacemaker implantation, cholecystectomy, and hysterectomy. MEDICATIONS: Reviewed and reconciled. ALLERGIES: She is allergic to iodine, penicillin, procaine, shell fish, sulfa, and adhesive tape. HABITS: No history of drinking, smoking, or drug abuse. SOCIAL HISTORY: She lives at home. She is independent. FAMILY HISTORY: Significant for stroke and she said her mother was on blood thinners. REVIEW OF SYSTEMS: The patient's review of system was done in detail. There is no fever. No PND or orthopnea. No history of cardiac procedures beside the pacemaker. PHYSICAL EXAMINATION: GENERAL: Revealed a very pleasant patient resting comfortably. VITAL SIGNS: Blood pressure 102/68 and heart rate is 60. She is in sinus rhythm at this time. Her temperature is normal. Oxygen saturation is 98%. HEENT: PERRLA. EOMI. NECK: Supple. Jugular pressure is not elevated . LUNGS: She has only few scattered crackles . HEART: Regular at this time and she accentuated A2 and short systolic ejection murmur on aorta. Her S2 is physiologically split. Pacemaker site is intact. BREAST: No masses palpable. ABDOMEN: Soft and nontender. Bowel sounds are present. EXTREMITIES: Lower extremity, no edema. NEUROLOGIC: She appears to be intact. She has marked tremor on the right arm. LABORATORY AND DIAGNOSTIC DATA: Her EKG yesterday in the emergency department revealed presence of atrial fibrillation with a rate of 147 beats per minute with some ST depression and today's EKG is pending. Her rhythm strip shows sinus rhythm right now. Her chest x-ray did not show any significant abnormalities. Her labs, troponin was negative. Creatinine 1.3 yesterday and today 1.1. LDL was 108. The rest of the labs are unremarkable. IMPRESSION AND RECOMMENDATION: Paroxysmal atrial fibrillation. The patient went back to sinus rhythm on metoprolol. She is on aspirin. Her CHADS2 score is 3 due to gander hypertension and age and she should be on Coumadin or non vit K antagonist anticoagulants, but may be diet should be discussed with her art objects salesperson prior to starting it because we were not sure who she is going to follow with and then whether there was some reasons not to anticoagulate her. Maybe that is the first episode of atrial fibrillation, but then she should be anticoagulated jail. Thank you very much for your consultation. I will follow this patient with you. This was done as a coverage for Dr. Clarisse Calloway. Breanna Vogel M.D. DR: Uday JOB#: [id number] CC: PORTILLO
[2017-01-24] VITALS: BP 106/59
[2017-01-24] MEDS: Metoprolol 25mg tab ORAL SCH ×2 (00:05→06:02)
[2017-01-24 04:22] VITALS: BP 110/66
[2017-01-24] MEDS: Heparin 5000 units/ml inj SUBQ SCH (06:35)
[2017-01-24] MEDS: Aspirin EC 325mg tab ORAL SCH (08:56)
[2017-01-24] MEDS: Docusate 100mg tablet ORAL SCH (08:56)
[2017-01-24] MEDS: Vitamin D 1000 IU Tab ORAL SCH (08:56)
[2017-01-24 08:59] VITALS: BP 118/73
--- NOTE | 2017-01-24 14:29 | Cardiology Report ---
APPROVED REPORT EKG Measurement Heart [id number] Atrial fibrillation with rapid ventricular response Abnormal ECG
--- NOTE | 2017-01-24 14:59 | Cardiology Report ---
APPROVED REPORT EXAM: Two-dimensional and M-mode echocardiogram with Doppler and color Doppler. INDICATION Chest Pain M-Mode DIMENSIONS IVSd0.9 (0.7-1.1cm)Left Atrium (MM)4.4 (1.6-4.0cm) LVDd4.8 (3.5-5.6cm)Aortic Root2.7 (2.0-3.7cm) PWd1.0 (0.7-1.1cm)Aortic Cusp Exc.1.6 (1.5-2.0cm) LVDs2.3 (2.5-4.0cm) PWs1.5 cm Normal left ventricular chamber size, systolic function and wall motion. Left ventricular ejection fraction estimated to be 60-65%. Mild left ventricular hypertrophy. Small posterior pericardial effusion. Right cardiac chamber sizes are within normal limits. Mild left atrial enlargement by 2D. Focal aortic valve sclerosis with adequate cusp excursion Thickened mitral valve leaflets with normal excursion. Mild mitral annulus and aortic root calcification. Pulmonic valve not well visualized. Normal tricuspid valve structure. IVC is normal in size with physiologic collapse. A color flow and spectral Doppler study was performed and revealed: No aortic regurgitation. Trace mitral regurgitation. Mitral inflow velocities indicates possible pseudo normalization pattern implying significant left ventricular diastolic dysfunction. Moderate tricuspid regurgitation. Tricuspid systolic velocities suggests peak right ventricular systolic pressure of 24 mmHg Pulmonic regurgitation present.
== END 2017-01-24 11:30 | disposition home or self-care (01) | DRG 310 ==
LOC: EDBD 18:35 → EMR 19:39 → EDBEDREQ 21:00 → 2E 21:23
DX: I48.0 Paroxysmal atrial fibrillation (principal); I10 Essential (primary) hypertension; E78.5 Hyperlipidemia, unspecified; K21.9 Gastro-esophageal reflux disease without esophagitis; G47.33 Obstructive sleep apnea (adult) (pediatric); Z95.0 Presence of cardiac pacemaker; Z88.0 Allergy status to penicillin; Z79.82 Long term (current) use of aspirin; Z88.2 Allergy status to sulfonamides; Z91.041 Radiographic dye allergy status
CPT/HCPCS: 36415; 71010; 80048; 80053; 80061; 82550; 82553; 83735; 83880; 84100; 84439; 84443; 84484; 85025; 93005; 93306

== ENCOUNTER 2017-05-17 10:35 | Inpatient (IN) | payer MEDICARE, BC ==
[~2017-05-17] VITALS: Ht 160 cm; Wt 84.8 kg
[2017-05-17 10:35] VITALS: BP 118/66
[~2017-05-17 10:35] MED LIST: ASPIR 8181 MG ORAL; B-121000 MCG PO; BENICAR5 MG ORAL; CENTRUM SILVER1 EAC4 PO; KLOR-CON20 MEQ ORAL; NEXIUM40 MG ORAL; PATADAY2.5 ML OP; REFRESH CLASSI1 EACH OP; SIMVASTATIN40 MG ORAL; VITAMIN D1000 UNI1 ORAL
[2017-05-17 11:36] LABS: BASOPHILS % (AUTO) 0.6 % (0.0-2.0); EOSINOPHILS % (AUTO) 2.5 % (0.0-3.0); LYMPHOCYTES % (AUTO) 25.8 % (20.0-45.0); MEAN CORPUSCULAR HEMOGLOBIN 32.5 PG (27.0-31.0); MEAN CORPUSCULAR HGB CONC 32.6 G/DL (32.0-36.0); MEAN CORPUSCULAR VOLUME 100 FL (80-99); MEAN PLATELET VOLUME 9.3 FL (6.5-10.1); MONOCYTES % (AUTO) 17.1 % (1.0-10.0); PLATELET COUNT 175 K/UL (150-450); RED BLOOD COUNT 4.23 M/UL (4.20-5.40); RED CELL DISTRIBUTION WIDTH 12.1 % (11.6-14.8); WHITE BLOOD COUNT 6.6 K/UL (4.8-10.8)
[2017-05-17] MEDS ORDERED: Dextrose 10%/0.9% SOD CHL 1,000 ML IV SCH (11:45)
--- NOTE | 2017-05-17 11:47 | Emergency Room Report ---
History of Present Illness General Chief Complaint: Dizziness Source: Patient Present Illness HPI [id number] BIBEMS for low blood sugar Patient states she is "pre-diabetic." Took Glyburide this morning for first time EMS said glucose down to 20, improved with sugar Here was normal then dropped to 50 again Patient denies taking any medication for DM aside from glyburide Denies chest pain, SOB, abd pain, headache, fever/chills Also c/o "feeling funny in the head." Hit left side of head 10 days ago. No LOC. On Xarelto. Allergies: Coded Allergies: PENICILLINS (Verified Allergy, Mild, 08/30/10) SHELLFISH (Verified Allergy, Mild, 08/30/10) SULFA (SULFONAMIDE ANTIBIOTICS) (Verified Allergy, Mild, 08/30/10) PROCAINE (Unverified Allergy, Unknown, 01/22/17) IODINE (Verified Adverse Reaction, Severe, HYPERSENSATIVITY TO CONTRAST, ) LAST TIME PT WAS GIVEN CONTRAST, SHE HAD TO BE GIVEN HIGH DOSE CORTICOSTEROID, PER PT ORDER ADHESIVE TAPE (Verified Adverse Reaction, Intermediate, DRY, ITCHY SKIN, ) PER PT ORDER Uncoded Allergies: NOVACAINE (Allergy, Mild, 08/30/10) TAPE (Allergy, Unknown, 05/17/17) Patient History Past Medical History: DM Past Surgical History: none Pertinent Family History: none Social History: Denies: alcohol use, drug use, smoking Last Menstrual Period: na Now: No Immunizations: UTD Reviewed Nursing Documentation: PMH: Agreed, PSxH: Agreed Nursing Documentation-PMH Hx Hypertension: Yes Hx Pacemaker: Yes - left chest Hx Gastrointestinal Problems: Yes - gallstone removal 2016 Review of Systems All Other Systems: negative except mentioned in HPI Physical Exam Vital Signs Date Time Temp Pulse Resp B/P Pulse Ox O2 Delivery O2 Flow Rate FiO2 05/17/17 10:18 98.4 78 18 137/76 98 Room Air Sp02 EP Interpretation: reviewed, normal General Appearance: normal inspection, well appearing, no apparent distress, alert, GCS 15, non-toxic Head: normocephalic, atraumatic Eyes: bilateral eye EOMI, bilateral eye PERRL ENT: normal ENT inspection, hearing grossly normal, normal voice Neck: normal inspection, full range of motion, supple, no bony tend Respiratory: normal inspection, lungs clear, normal breath sounds, no respiratory distress, no retraction, no wheezing Cardiovascular #1: regular rate, rhythm, no edema Gastrointestinal: normal inspection, normal bowel sounds, non tender, soft, no guarding, no hernia Genitourinary: no CVA tenderness Musculoskeletal: normal inspection, back normal, normal range of motion, Day' s Sign negative Neurologic: normal inspection, alert, oriented x3, responsive, instrument lens inspector III-XII nml as tested, motor strength/tone normal, speech normal Psychiatric: normal inspection, judgement/insight normal, mood/affect normal Skin: normal inspection, normal color, no rash Lymphatic: normal inspection Medical Decision Making Medicare Attestation I Joseph Wright MD hereby attest that the medical record entry for date of service,05/17/17 accurately reflects signatures/notations that I made in my capacity as MD when I treated/diagnosed the above listed Medicare beneficiary. I attest that this information is true, accurate and complete to the best of my knowledge. I understand that any falsification, omission, or concealment of material fact may subject me to administrative, civil, or criminal liability. This patient warrants hospital admission for extreme of age and has a condition that cannot be treated as outpatient. Diagnostic Impression: Primary Impression: Dizziness Additional Impressions: Head trauma Qualified Codes: S09.90XA - Unspecified injury of head, initial encounter Hypoglycemia ER Course Continued drop in blood sugar under monitoring in ED Started on D10 gtt for long-acting effects of sulfonylurea Glucose 51 on CMP No additional symptoms in ED CT head negative for subacute trauma Endorsed to Dr Mabry for tele admit 1233pm EKG Diagnostic Results Rate: normal Rhythm: NSR ST Segments: no acute changes ASA given to the pt in ED: No Rhythm Strip Diag. Results EP Interpretation: yes Rate: 74 Rhythm: NSR, no PVC's, no ectopy Chest X-Ray Diagnostic Results Chest X-Ray Diagnostic Results : Chest X-Ray Ordered: Yes # of Views/Limited/Complete: 1 View Indication: Chest Pain EP Interpretation: Yes Interpretation: no consolidation, no effusion, no pneumothorax, no acute cardiopulmonary disease, other - pacemaker Impression: No acute disease Interpreting ER Provider: Dr Joseph Wright MD Last Vital Signs Date Time Temp Pulse Resp B/P Pulse Ox O2 Delivery O2 Flow Rate FiO2 05/17/17 10:35 98.4 78 21 118/66 100 Room Air Status: improved Disposition: ADMITTED INPATIENT Condition: Critical Referrals: NOT CHOSEN IPA/,REFERRING (PCP) JOSEPH WRIGHT M.D. May 17, 2017 11:47
[2017-05-17 11:58] LABS: ALANINE AMINOTRANSFERASE 47 U/L (3-33); ANION GAP 14 (5-15); ASPARTATE AMINO TRANSFERASE 58 U/L (5-40); CALCIUM 9.7 mg/dL (8.6-10.2); CARBON DIOXIDE 24 mEQ/L (20-30); CHLORIDE 107 mEQ/L (98-107); HEMOLYSIS 24; POTASSIUM 3.3 mEQ/L (3.4-4.9); SODIUM 145 mEQ/L (135-145); TOTAL PROTEIN 7.5 g/dL (6.6-8.7)
[2017-05-17 13:30] VITALS: BP 138/73
[2017-05-17] MEDS ORDERED: Mylanta II UD 30ml ORAL PRN (13:45)
[2017-05-17] MEDS ORDERED: Miralax 17gm pkt ORAL PRN (13:45)
--- NOTE | 2017-05-17 13:50 | Diagnostic Imaging Report ---
Indication: Headache Technique: Contiguous 5 mm thick transaxial imaging of the head obtained in a Siemens Sensation [address] scanner. Soft tissue and bone windows generated. Total Dose length Product (DLP): [address] Dose Index Volume (CTDIvol): 70.38 mGy Comparison: 08/29/10 Findings: There is mild prominence of the ventricles, basal cisterns, and cerebral sulci consistent with atrophy. Mild, nonspecific, white matter hypoattenuation is noted throughout the brain consistent with chronic small vessel disease. There is no midline shift, edema, acute hemorrhage, mass effect, or abnormal extra-axial fluid collections. Bones and extra osseous soft tissues are unremarkable. Impression: No acute intracranial bleed, mass effect or edema. Mild atrophy of the brain. Nonspecific white matter hypoattenuation probably due to chronic small vessel disease. The CT scanner at [facility] is accredited by the [employer] and the scans are performed using dose optimization techniques as appropriate to a performed exam including Automatic Exposure control.
--- NOTE | 2017-05-17 14:42 | Diagnostic Imaging Report ---
Indication: Dyspnea Comparison: 01/22/17 A single view chest radiograph was obtained. Findings: No definite infiltrate or pulmonary vascular congestion identified. Pacemaker noted on the left. The heart is enlarged. The aorta is mildly enlarged consistent with atherosclerotic vascular disease. The bones are osteopenic. Impression: No acute disease
[2017-05-17] MEDS ORDERED: POTASSIUM99 M3 PO (15:36)
[2017-05-17] MEDS ORDERED: METFORMIN HCL500 M1 ORAL (15:36)
[2017-05-17] MEDS ORDERED: HYDROCHLOROTH12.5 M2 ORAL (15:38)
[2017-05-17] MEDS ORDERED: GLIPIZIDE5 MG ORAL (15:38)
[2017-05-17 15:42] VITALS: BP 138/60
[2017-05-17 17:14] VITALS: BP 139/61
[2017-05-17] MEDS: NovoLOG Insulin Flexpen SUBQ SCH ×2 (17:30→21:00)
[2017-05-17 20:00] VITALS: BP 121/57
[2017-05-17] MEDS ORDERED: Heparin 5000 units/ml inj SUBQ SCH (21:00)
[2017-05-17] MEDS: Atorvastatin 20mg tab ORAL SCH (21:00)
[2017-05-17] MEDS ORDERED: Milk of Magnesia 30ml Ud ORAL PRN (21:00)
--- NOTE | 2017-05-17 21:02 | History and Physical ---
History of Present Illness General Date patient seen: May 17, 2017 Time patient seen: 17:00 Reason for Hospitalization: Dizziness Present Illness HPI 77y/o female with pmh of HTN, HLD, pAfib, SSS s/p ICD, GERD, gout who presents with AMS, dizziness. Pt states was on MTF for diabetes but did not tolerate 2/2 ?fatigue/weakness. She saw her PCP Dr. Michael who switched her to Glipizide. She took the first dose this AM. Pt states she felt "funny", dizzy, sweaty. Parametics wer called. Glucose found to be 20. Given dextrose and then sugar improved to 100s w/ improved mentation. Pt denies f/c, n/v, d/c, chest pain, SOB , abd pain, dysuria. Pt also states she hit the left side of her head a few days ago, and now has a slight bump w/ some pain. Denies fall or LOC. In ED, BG dropped again to 50s. Pt given juice and started on D10 drip w/ improvement. CT head neg for acute pathology. Allergies: Coded Allergies: PENICILLINS (Verified Allergy, Mild, 08/30/10) SHELLFISH (Verified Allergy, Mild, 08/30/10) SULFA (SULFONAMIDE ANTIBIOTICS) (Verified Allergy, Mild, 08/30/10) PROCAINE (Unverified Allergy, Unknown, 01/22/17) IODINE (Verified Adverse Reaction, Severe, HYPERSENSATIVITY TO CONTRAST, ) LAST TIME PT WAS GIVEN CONTRAST, SHE HAD TO BE GIVEN HIGH DOSE CORTICOSTEROID, PER PT ORDER ADHESIVE TAPE (Verified Adverse Reaction, Intermediate, DRY, ITCHY SKIN, ) PER PT ORDER Uncoded Allergies: NOVACAINE (Allergy, Mild, 08/30/10) TAPE (Allergy, Unknown, 05/17/17) Medication History Scheduled Cholecalciferol (Vitamin D3)* (Vitamin D*), 2,000 UNITS ORAL DAILY, (Reported) Cyanocobalamin (Vitamin B-12) (B-12), 1,000 MCG PO DAILY, (Reported) Esomeprazole Magnesium (Nexium), 40 MG ORAL DAILY, (Reported) Glipizide* (Glipizide*), 5 MG ORAL BIDAC, (Reported) Hydrochlorothiazide* (Hydrochlorothiazide*), 12.5 MG ORAL DAILY, (Reported) Mu-Vits-Min Th/Lycopene/Lutein (Centrum Silver Tablet), 1 EACH PO DAILY, ( Reported) Olmesartan Medoxomil (Benicar), 5 MG ORAL DAILY, (Reported) Olopatadine Hcl (Pataday), 2.5 ML OP DAILY, (Reported) Polyvinyl Alcohol/Povidone/Pf (Refresh Classic Eye Drops), 1 EACH OP BID, ( Reported) Simvastatin (Zocor), 40 MG ORAL BEDTIME, (Reported) Miscellaneous Medications Metformin Hcl* (Metformin Hcl*), 500 MG ORAL, (Reported) Potassium Gluconate (Potassium), 10 MG PO, (Reported) Patient History Healthcare decision maker ROSIBEL BRITT Resuscitation status Full Code Advanced Directive on File AT HOME NO ONE TO BRING SAME Family History Family History: FH: stomach cancer Social History Social History: (1) Lives alone without help available Review of Systems Constitutional: Reports: weakness Eye: Reports: no symptoms ENT: Reports: no symptoms Respiratory: Reports: no symptoms Cardiovascular: Reports: no symptoms Gastrointestinal: Reports: no symptoms Genitourinary: Reports: no symptoms Musculoskeletal: Reports: no symptoms Skin: Reports: no symptoms Psychiatric: Reports: depressed feelings Neurological: Reports: dizziness Endocrine: Reports: no symptoms Hematologic/Lymphatic: Reports: no symptoms Physical Exam Physical Exam Narrative General: alert, cooperative, no distress, appears stated age Head: normocephalic, without obvious abnormality, atraumatic Eyes: conjunctivae/corneas clear. PERRL, EOM's intact Throat: lips, mucosa, and tongue normal. MMM Neck: supple, symmetrical, trachea midline, and no JVD Lungs: clear to auscultation bilaterally Heart: regular rate and rhythm, S1, S2 normal, no murmur, click, rub or gallop Abdomen: soft, non-tender, non-distended, bowel sounds normal; no masses or organomegaly Extremities: extremities normal, atraumatic, no cyanosis or edema Pulses: 2+ and symmetric Skin: skin color, texture, turgor normal; no rashes or lesions Neurologic: grossly normal, no focal deficits Last 24 Hour Vital Signs Date Time Temp Pulse Resp B/P Pulse Ox O2 Delivery O2 Flow Rate FiO2 05/17/17 17:14 97.7 72 20 139/61 96 Room Air 05/17/17 16:35 98.4 88 25 138/60 98 Room Air 88 05/17/17 15:42 98.4 88 25 138/60 98 Room Air 88 05/17/17 13:30 98.4 76 18 138/73 98 Room Air 76 05/17/17 10:35 98.4 78 21 118/66 100 Room Air 05/17/17 10:18 98.4 78 18 137/76 98 Room Air Laboratory Tests Test 05/17/17 11:24 White Blood Count 6.6 K/UL (4.8-10.8) Red Blood Count 4.23 M/UL (4.20-5.40) Hemoglobin 13.7 G/DL (12.0-16.0) Hematocrit 42.1 % (37.0-47.0) Mean Corpuscular Volume 100 FL (80-99) H Mean Corpuscular Hemoglobin 32.5 PG (27.0-31.0) H Mean Corpuscular Hemoglobin Concent 32.6 G/DL (32.0-36.0) Red Cell Distribution Width 12.1 % (11.6-14.8) Platelet Count 175 K/UL (150-450) Mean Platelet Volume 9.3 FL (6.5-10.1) Neutrophils (%) (Auto) 54.0 % (45.0-75.0) Lymphocytes (%) (Auto) 25.8 % (20.0-45.0) Monocytes (%) (Auto) 17.1 % (1.0-10.0) H Eosinophils (%) (Auto) 2.5 % (0.0-3.0) Basophils (%) (Auto) 0.6 % (0.0-2.0) Sodium Level 145 mEQ/L (135-145) Potassium Level 3.3 mEQ/L (3.4-4.9) L Chloride Level 107 mEQ/L (98-107) Carbon Dioxide Level 24 mEQ/L (20-30) Anion Gap 14 (5-15) Blood Urea Nitrogen 35 mg/dL (7-23) H Creatinine 1.0 mg/dL (0.5-0.9) H Estimat Glomerular Filtration Rate mL/min (>60) Glucose Level 51 mg/dL (74-106) L Calcium Level 9.7 mg/dL (8.6-10.2) Total Bilirubin 0.2 mg/dL (0.0-1.2) Aspartate Amino Transf (AST/SGOT) 58 U/L (5-40) H Alanine Aminotransferase (ALT/SGPT) 47 U/L (3-33) H Alkaline Phosphatase 46 U/L (35-104) Total Protein 7.5 g/dL (6.6-8.7) Albumin 3.8 g/dL (3.5-5.2) Globulin 3.7 g/dL Albumin/Globulin Ratio 1.0 (1.0-2.7) Height (Feet): 5 Height (Inches): 3.00 Weight (Pounds): 187 Medications Current Medications Medications (Trade) Dose Ordered Sig/Kenneth Route PRN Reason Start Time Stop Time Status Last Admin Dose Admin Acetaminophen (Tylenol) 650 mg Q4H PRN ORAL Mild Pain (Pain Scale 1-3) 05/17/17 13:45 06/16/17 13:44 Al Hydroxide/Mg Hydroxide (Mylanta II) 30 ml Q6H PRN ORAL dyspepsia 05/17/17 13:45 06/16/17 13:44 Aspirin (ASA) 325 mg DAILY ORAL 05/18/17 09:00 06/17/17 08:59 Atorvastatin Calcium (Lipitor) 20 mg BEDTIME ORAL 05/17/17 21:00 06/16/17 20:59 Bisacodyl (Dulcolax) 10 mg HSPRN PRN RECTAL Constipation 05/17/17 21:00 06/16/17 20:59 Cyanocobalamin (Vitamin B-12) 1,000 mcg DAILY SL 05/18/17 09:00 06/17/17 08:59 Dextrose (Dextrose 50%) STAT PRN IV Hypoglycemia 05/17/17 15:00 06/16/17 14:59 Diphenhydramine HCl (Benadryl) 25 mg Q6H PRN ORAL Itching/Pruritis 05/17/17 13:45 06/16/17 13:44 Docusate Sodium (Colace) 100 mg EVERY 12 HOURS ORAL 05/17/17 21:00 06/16/17 20:59 Insulin Aspart (NovoLOG) BEFORE MEALS AND HS SUBQ 05/17/17 16:30 06/16/17 16:29 Magnesium Hydroxide (Mom) 30 ml HSPRN PRN ORAL Constipation 05/17/17 21:00 06/16/17 20:59 Multivitamins Therapeutic (Therapeutic Multivitamin) 1 ea DAILY ORAL 05/18/17 09:00 06/17/17 08:59 Pantoprazole (Protonix) 40 mg DAILY ORAL 05/18/17 09:00 06/17/17 08:59 Polyethylene Glycol (Miralax) 17 gm HSPRN PRN ORAL Constipation 05/17/17 13:45 06/16/17 13:44 Vitamin D (Vitamin D) 1,000 intlu DAILY ORAL 05/18/17 09:00 06/17/17 08:59 Assessment/Plan Problem List: (1) Hypoglycemia ICD Codes: E16.2 - Hypoglycemia, unspecified SNOMED: 202445137, 100657855 (2) Acute encephalopathy ICD Codes: G93.40 - Encephalopathy, unspecified SNOMED: 9157122 (3) Head trauma ICD Codes: S09.90XA - Unspecified injury of head, initial encounter SNOMED: 13571868 Qualifiers: Qualified Codes: S09.90XA - Unspecified injury of head, initial encounter (4) Paroxysmal a-fib ICD Codes: I48.0 - Paroxysmal atrial fibrillation SNOMED: 831521176 (5) Pacemaker ICD Codes: Z95.0 - Presence of cardiac pacemaker SNOMED: 072732841, 872526023 (6) HTN (hypertension) ICD Codes: I10 - Essential (primary) hypertension SNOMED: 28463905 (7) GERD (gastroesophageal reflux disease) ICD Codes: K21.9 - Gastro-esophageal reflux disease without esophagitis SNOMED: 047836078 Status: stable Assessment/Plan Admit inpt Endo consulted Hold hypoglycemic agents s/p D10W gtt ALONZO Check A1C, TSH, B12/folate Monitor mental status closely Hold home BP meds for now and resume slowly as BP tolerates Con other home meds Pain control, bowel regimen Supportive care SW consult for home safety eval PT/OT eval DVT Prophylaxis: SCD, HSQ Code Status: Full Hospital Classification Declaration: Based on this initial evaluation, and depending on the patient's clinical course, I anticipate that this patient will require hospitalization for 2-3 days for hypoglycemia, AMS and close respiratory /hemodynamic monitoring. Disposition: Once the patient is stable to leave the hospital, I anticipate the patient will likely be discharged to the following environment: home with HH vs SNF I spent 70 minutes on this patient's case, and 38 minutes were dedicated to counseling and/or care coordination. Discussed with patient/family, nursing staff, SW/CM, ED physician, endo regarding clinical status, treatment course, and disposition planning. Time of note may not reflect time of encounter. Charlotte Orellana M.D. May 17, 2017 21:02
[2017-05-17] MEDS: Heparin 5000 units/ml inj SUBQ SCH (22:20)
[2017-05-17] MEDS: Docusate 100mg cap ORAL SCH (22:21)
[2017-05-18] VITALS: BP 111/63
[2017-05-18 04:00] VITALS: BP 106/56
[2017-05-18] MEDS: NovoLOG Insulin Flexpen SUBQ SCH ×3 (06:30→16:30)
[2017-05-18 07:38] LABS: BASOPHILS % (AUTO) 0.9 % (0.0-2.0); EOSINOPHILS % (AUTO) 5.4 % (0.0-3.0); LYMPHOCYTES % (AUTO) 40.9 % (20.0-45.0); MEAN CORPUSCULAR HEMOGLOBIN 34.3 PG (27.0-31.0); MEAN CORPUSCULAR HGB CONC 34.4 G/DL (32.0-36.0); MEAN CORPUSCULAR VOLUME 99 FL (80-99); MEAN PLATELET VOLUME 9.5 FL (6.5-10.1); MONOCYTES % (AUTO) 15.7 % (1.0-10.0); NEUTROPHILS % (AUTO) 37.1 % (45.0-75.0); PLATELET COUNT 165 K/UL (150-450); RED BLOOD COUNT 3.71 M/UL (4.20-5.40); RED CELL DISTRIBUTION WIDTH 11.9 % (11.6-14.8)
[2017-05-18 08:08] VITALS: BP 111/68
[2017-05-18 08:08] LABS: HEMOGLOBIN A1C 5.4 % (< 6.0)
[2017-05-18 08:18] LABS: ANION GAP 11 (5-15); CALCIUM 9.5 mg/dL (8.6-10.2); CARBON DIOXIDE 26 mEQ/L (20-30); CHLORIDE 106 mEQ/L (98-107); CREATININE 1.1 mg/dL (0.5-0.9); HEMOLYSIS 7; MAGNESIUM 2.1 mg/dL (1.7-2.5); POTASSIUM 4.1 mEQ/L (3.4-4.9); SODIUM 143 mEQ/L (135-145)
[2017-05-18] MEDS: Heparin 5000 units/ml inj SUBQ SCH (09:00)
[2017-05-18] MEDS ORDERED: Vitamin D 1000 IU Tab ORAL SCH (09:00)
[2017-05-18] MEDS: Multivitamin w/Minerals tab ORAL SCH (10:58)
[2017-05-18] MEDS: Vitamin B-12 500mcg tab SL SCH (10:59)
[2017-05-18] MEDS: Docusate 100mg cap ORAL SCH ×2 (10:59→21:30)
[2017-05-18 11:44] VITALS: BP 124/69
--- NOTE | 2017-05-18 15:07 | General Progress Note ---
Assessment/Plan Problem List: (1) Hypoglycemia ICD Codes: E16.2 - Hypoglycemia, unspecified SNOMED: 191066204, 522172049 (2) Acute encephalopathy ICD Codes: G93.40 - Encephalopathy, unspecified SNOMED: 1579044 (3) Head trauma ICD Codes: S09.90XA - Unspecified injury of head, initial encounter SNOMED: 07990311 Qualifiers: Qualified Codes: S09.90XA - Unspecified injury of head, initial encounter (4) Paroxysmal a-fib ICD Codes: I48.0 - Paroxysmal atrial fibrillation SNOMED: 591138722 (5) Pacemaker ICD Codes: Z95.0 - Presence of cardiac pacemaker SNOMED: 338493086, 668384056 (6) HTN (hypertension) ICD Codes: I10 - Essential (primary) hypertension SNOMED: 31890439 (7) GERD (gastroesophageal reflux disease) ICD Codes: K21.9 - Gastro-esophageal reflux disease without esophagitis SNOMED: 380135155 Status: stable Assessment/Plan Endo consulted Hold hypoglycemic agents s/p D10W gtt ALONZO Monitor mental status closely Hold home BP meds for now and resume slowly as BP tolerates Con other home meds including xarelto 20mg daily Pain control, bowel regimen Supportive care SW consult for home safety eval PT/OT CM consult for SNF for rehab DVT Prophylaxis: SCD, xarelto Code Status: Full Hospital Classification Declaration: Based on this initial evaluation, and depending on the patient's clinical course, I anticipate that this patient will require hospitalization for 1-2 days for hypoglycemia, AMS and close respiratory /hemodynamic monitoring. Disposition: Once the patient is stable to leave the hospital, I anticipate the patient will likely be discharged to the following environment: home with HH vs SNF I spent 42 minutes on this patient's case, and 24 minutes were dedicated to counseling and/or care coordination. Discussed with patient/family, nursing staff, SW/CM, regarding clinical status, treatment course, and disposition planning. Time of note may not reflect time of encounter. Subjective Date patient seen: May 18, 2017 Time patient seen: 15:07 ROS Limited/Unobtainable: No Constitutional: Reports: weakness HEENT: Reports: no symptoms Cardiovascular: Reports: no symptoms Respiratory: Reports: no symptoms Gastrointestinal/Abdominal: Reports: no symptoms Genitourinary: Reports: no symptoms Neurologic/Psychiatric: Reports: no symptoms Endocrine: Reports: no symptoms Allergies: Coded Allergies: PENICILLINS (Verified Allergy, Mild, 08/30/10) SHELLFISH (Verified Allergy, Mild, 08/30/10) SULFA (SULFONAMIDE ANTIBIOTICS) (Verified Allergy, Mild, 08/30/10) PROCAINE (Unverified Allergy, Unknown, 01/22/17) IODINE (Verified Adverse Reaction, Severe, HYPERSENSATIVITY TO CONTRAST, ) LAST TIME PT WAS GIVEN CONTRAST, SHE HAD TO BE GIVEN HIGH DOSE CORTICOSTEROID, PER PT ORDER ADHESIVE TAPE (Verified Adverse Reaction, Intermediate, DRY, ITCHY SKIN, ) PER PT ORDER Uncoded Allergies: NOVACAINE (Allergy, Mild, 08/30/10) TAPE (Allergy, Unknown, 05/17/17) Subjective BG improved A1C 5.4 Mental status improved Denies f/c, n/v, d/c, chest pain, SOB Working w/ PT/OT Objective Last 24 Hour Vital Signs Date Time Temp Pulse Resp B/P Pulse Ox O2 Delivery O2 Flow Rate FiO2 05/18/17 12:00 62 05/18/17 11:44 97.0 62 18 124/69 98 Room Air 05/18/17 08:08 97.0 67 18 111/68 97 Room Air 05/18/17 08:00 63 05/18/17 04:00 66 05/18/17 04:00 97.3 59 20 106/56 96 Room Air 05/18/17 00:00 97.5 64 20 111/63 96 Room Air 64 05/18/17 00:00 67 05/17/17 20:00 97.0 66 20 121/57 98 Room Air 05/17/17 20:00 80 05/17/17 17:14 97.7 72 20 139/61 96 Room Air 05/17/17 16:35 98.4 88 25 138/60 98 Room Air 88 05/17/17 15:42 98.4 88 25 138/60 98 Room Air 88 Intake and Output 05/17/17 05/18/17 19:00 07:00 Intake Total 300 ml Output Total 1050 ml Balance 300 ml -1050 ml Intake Oral 200 ml IV Total 100 ml Output Urine Total 1050 ml # Voids 1 Laboratory Tests 05/18/17 06:35: White Blood Count 5.0, Red Blood Count 3.71L, Hemoglobin 12.7, Hematocrit 36.9L , Mean Corpuscular Volume 99, Mean Corpuscular Hemoglobin 34.3H, Mean Corpuscular Hemoglobin Concent 34.4, Red Cell Distribution Width 11.9, Platelet Count 165, Mean Platelet Volume 9.5, Neutrophils (%) (Auto) 37.1L, Lymphocytes ( %) (Auto) 40.9, Monocytes (%) (Auto) 15.7H, Eosinophils (%) (Auto) 5.4H, Basophils (%) (Auto) 0.9, Sodium Level 143, Potassium Level 4.1, Chloride Level 106, Carbon Dioxide Level 26, Anion Gap 11, Blood Urea Nitrogen 29H, Creatinine 1.1H, Estimat Glomerular Filtration Rate , Glucose Level 107H, Hemoglobin A1c 5.4, Calcium Level 9.5, Magnesium Level 2.1, Vitamin B12 Level 1721H, Folate [ Pending], Thyroid Stimulating Hormone (TSH) 1.800 Height (Feet): 5 Height (Inches): 3.00 Weight (Pounds): 187 Objective General: alert, cooperative, no distress, appears stated age Head: normocephalic, without obvious abnormality, atraumatic Eyes: conjunctivae/corneas clear. PERRL, EOM's intact Throat: lips, mucosa, and tongue normal. MMM Neck: supple, symmetrical, trachea midline, and no JVD Lungs: clear to auscultation bilaterally Heart: regular rate and rhythm, S1, S2 normal, no murmur, click, rub or gallop Abdomen: soft, non-tender, non-distended, bowel sounds normal; no masses or organomegaly Extremities: extremities normal, atraumatic, no cyanosis or edema Pulses: 2+ and symmetric Skin: skin color, texture, turgor normal; no rashes or lesions Neurologic: grossly normal, no focal deficits Charlotte Orellana M.D. May 18, 2017 15:07
[2017-05-18 15:41] VITALS: BP 120/62
[2017-05-18] MEDS: Xarelto 15mg tab ORAL SCH ×2 (16:30→19:03)
[2017-05-18 20:00] VITALS: BP 115/72
[2017-05-18] MEDS: Atorvastatin 20mg tab ORAL SCH (21:31)
[2017-05-19] VITALS: BP 99/65
[2017-05-19 04:00] VITALS: BP 129/72
--- NOTE | 2017-05-19 07:01 | General Progress Note ---
Assessment/Plan Problem List: (1) Acute encephalopathy ICD Codes: G93.40 - Encephalopathy, unspecified SNOMED: 9405988 (2) Hypoglycemia ICD Codes: E16.2 - Hypoglycemia, unspecified SNOMED: 502328836, 441907756 (3) Paroxysmal a-fib ICD Codes: I48.0 - Paroxysmal atrial fibrillation SNOMED: 590730328 (4) HTN (hypertension) ICD Codes: I10 - Essential (primary) hypertension SNOMED: 21147273 Assessment/Plan - hypoglycemia due to Glipizide which seems resolved - A1c is 5.4% which is normal and below DM range - no need for oral diabetic medications or insulin after discharge Subjective Allergies: Coded Allergies: PENICILLINS (Verified Allergy, Mild, 08/30/10) SHELLFISH (Verified Allergy, Mild, 08/30/10) SULFA (SULFONAMIDE ANTIBIOTICS) (Verified Allergy, Mild, 08/30/10) PROCAINE (Unverified Allergy, Unknown, 01/22/17) IODINE (Verified Adverse Reaction, Severe, HYPERSENSATIVITY TO CONTRAST, ) LAST TIME PT WAS GIVEN CONTRAST, SHE HAD TO BE GIVEN HIGH DOSE CORTICOSTEROID, PER PT ORDER ADHESIVE TAPE (Verified Adverse Reaction, Intermediate, DRY, ITCHY SKIN, ) PER PT ORDER Uncoded Allergies: NOVACAINE (Allergy, Mild, 08/30/10) TAPE (Allergy, Unknown, 05/17/17) All Systems: reviewed and negative except above Subjective admitted with severe hypoglycemia after single dose of glipizide - new Rx Metformin was tried by PCP - not tolerated due to AE hypoglycemia treated with dextrose infusion - DC'ed Objective Last 24 Hour Vital Signs Date Time Temp Pulse Resp B/P (MAP) Pulse Ox O2 Delivery O2 Flow Rate FiO2 05/19/17 04:34 91 05/19/17 04:00 97.1 75 20 129/72 96 Room Air 05/19/17 00:00 97.2 77 20 99/65 95 Room Air 05/19/17 00:00 72 05/18/17 20:00 96.6 78 21 115/72 95 Room Air 05/18/17 20:00 72 05/18/17 16:00 71 05/18/17 15:41 97.3 71 18 120/62 96 Room Air 05/18/17 12:00 62 05/18/17 11:44 97.0 62 18 124/69 98 Room Air 05/18/17 08:08 97.0 67 18 111/68 97 Room Air 05/18/17 08:00 63 Height (Feet): 5 Height (Inches): 3.00 Weight (Pounds): 187 General Appearance: no apparent distress Neck: normal alignment Cardiovascular: normal rate Respiratory/Chest: lungs clear Abdomen: normal bowel sounds Pelvis: normal external exam Edema: no edema noted Arm (L), no edema noted Arm (R), no edema noted Leg (L), no edema noted Leg (R), no edema noted Pedal (L), no edema noted Pedal (R), no edema noted Generalized Objective Item Value Date Time Bedside Blood Glucose 97 mg/dl 05/18/17 1630 Bedside Blood Glucose 79 mg/dl 05/18/17 1130 Bedside Blood Glucose 91 mg/dl 05/18/17 0630 ESTELLE MCCLAIN May 19, 2017 07:01
[2017-05-19 07:53] VITALS: BP 130/77
[2017-05-19] MEDS: Docusate 100mg cap ORAL SCH ×2 (08:59→20:39)
[2017-05-19] MEDS: Vitamin B-12 500mcg tab SL SCH (09:00)
[2017-05-19] MEDS: Multivitamin w/Minerals tab ORAL SCH (09:00)
[2017-05-19] MEDS ORDERED: Aspirin Baby 81mg ORAL SCH (09:00)
[2017-05-19 11:25] VITALS: BP 141/83
--- NOTE | 2017-05-19 14:02 | General Progress Note ---
Assessment/Plan Problem List: (1) Hypoglycemia ICD Codes: E16.2 - Hypoglycemia, unspecified SNOMED: 647114547, 357625761 (2) Acute encephalopathy ICD Codes: G93.40 - Encephalopathy, unspecified SNOMED: 2620216 (3) Head trauma ICD Codes: S09.90XA - Unspecified injury of head, initial encounter SNOMED: 09744470 Qualifiers: Qualified Codes: S09.90XA - Unspecified injury of head, initial encounter (4) Paroxysmal a-fib ICD Codes: I48.0 - Paroxysmal atrial fibrillation SNOMED: 897517228 (5) Pacemaker ICD Codes: Z95.0 - Presence of cardiac pacemaker SNOMED: 241331443, 555458333 (6) HTN (hypertension) ICD Codes: I10 - Essential (primary) hypertension SNOMED: 70981963 (7) GERD (gastroesophageal reflux disease) ICD Codes: K21.9 - Gastro-esophageal reflux disease without esophagitis SNOMED: 438706473 Status: stable Assessment/Plan Endo consulted Hold hypoglycemic agents s/p D10W gtt AIC 5.4, now c/w DM or pre-diabetes Monitor mental status closely Hold home BP meds for now and resume slowly as BP tolerates Con other home meds including xarelto 20mg daily Pain control, bowel regimen Supportive care SW consult for home safety eval PT/OT CM consult for SNF for rehab. Pt now wants to go home SW consulted for home safety eval--pt is safe to return home w/ hh Home health ordered DME ordered DC planning, likely tomorrow DVT Prophylaxis: SCD, xarelto Code Status: Full Hospital Classification Declaration: Based on this initial evaluation, and depending on the patient's clinical course, I anticipate that this patient will require hospitalization for 1-2 days for hypoglycemia, AMS and close respiratory /hemodynamic monitoring. Disposition: Once the patient is stable to leave the hospital, I anticipate the patient will likely be discharged to the following environment: home with HH vs SNF I spent 42 minutes on this patient's case, and 24 minutes were dedicated to counseling and/or care coordination. Discussed with patient/family, nursing staff, SW/CM, regarding clinical status, treatment course, and disposition planning. Time of note may not reflect time of encounter. Subjective Date patient seen: May 19, 2017 Time patient seen: 14:01 ROS Limited/Unobtainable: No Allergies: Coded Allergies: PENICILLINS (Verified Allergy, Mild, 08/30/10) SHELLFISH (Verified Allergy, Mild, 08/30/10) SULFA (SULFONAMIDE ANTIBIOTICS) (Verified Allergy, Mild, 08/30/10) PROCAINE (Unverified Allergy, Unknown, 01/22/17) IODINE (Verified Adverse Reaction, Severe, HYPERSENSATIVITY TO CONTRAST, ) LAST TIME PT WAS GIVEN CONTRAST, SHE HAD TO BE GIVEN HIGH DOSE CORTICOSTEROID, PER PT ORDER ADHESIVE TAPE (Verified Adverse Reaction, Intermediate, DRY, ITCHY SKIN, ) PER PT ORDER Uncoded Allergies: NOVACAINE (Allergy, Mild, 08/30/10) TAPE (Allergy, Unknown, 05/17/17) Subjective BG improved A1C 5.4 Mental status improved Denies f/c, n/v, d/c, chest pain, SOB Working w/ PT/OT Pt initially agreed to SNF for rehab but now states she wants to go home. Per SW assessment, pt is safe to return home w/ home health Objective Last 24 Hour Vital Signs Date Time Temp Pulse Resp B/P (MAP) Pulse Ox O2 Delivery O2 Flow Rate FiO2 05/19/17 12:00 78 05/19/17 11:25 97.0 64 18 141/83 96 Room Air 05/19/17 08:00 88 05/19/17 07:53 97.0 71 18 130/77 98 Room Air 05/19/17 04:34 91 05/19/17 04:00 97.1 75 20 129/72 96 Room Air 05/19/17 00:00 97.2 77 20 99/65 95 Room Air 05/19/17 00:00 72 05/18/17 20:00 96.6 78 21 115/72 95 Room Air 05/18/17 20:00 72 05/18/17 16:00 71 05/18/17 15:41 97.3 71 18 120/62 96 Room Air Intake and Output 05/19/17 05/20/17 19:00 07:00 Intake Total 360 ml Balance 360 ml Intake Oral 360 ml # Voids 2 Height (Feet): 5 Height (Inches): 3.00 Weight (Pounds): 187 Objective General: alert, cooperative, no distress, appears stated age Head: normocephalic, without obvious abnormality, atraumatic Eyes: conjunctivae/corneas clear. PERRL, EOM's intact Throat: lips, mucosa, and tongue normal. MMM Neck: supple, symmetrical, trachea midline, and no JVD Lungs: clear to auscultation bilaterally Heart: regular rate and rhythm, S1, S2 normal, no murmur, click, rub or gallop Abdomen: soft, non-tender, non-distended, bowel sounds normal; no masses or organomegaly Extremities: extremities normal, atraumatic, no cyanosis or edema Pulses: 2+ and symmetric Skin: skin color, texture, turgor normal; no rashes or lesions Neurologic: grossly normal, no focal deficits Charlotte Orellana M.D. May 19, 2017 14:02
--- NOTE | 2017-05-19 15:43 | Cardiology Report ---
APPROVED REPORT EKG Measurement Heart [id number] Normal sinus rhythm Nonspecific T wave abnormality Abnormal ECG
[2017-05-19 15:50] VITALS: BP 144/79
[2017-05-19] MEDS ORDERED: Artificial Tears 1.4% Op Soln BOTH EYES SCH (16:00)
[2017-05-19] MEDS: Xarelto 15mg tab ORAL SCH ×2 (16:30→20:39)
[2017-05-19] MEDS ORDERED: Mylanta II UD 30ml ORAL PRN (17:30)
[2017-05-19 20:00] VITALS: BP 111/60
[2017-05-19] MEDS ORDERED: Ketotifen Fumarate 0.035% 5ml BOTH EYES SCH ×2 (21:00)
[2017-05-19] MEDS ORDERED: Atorvastatin 20mg tab ORAL SCH (21:00)
[2017-05-19] MEDS ORDERED: Milk of Magnesia 30ml Ud ORAL PRN (21:00)
[2017-05-20] VITALS: BP 124/67
[2017-05-20 04:00] VITALS: BP 143/77
[2017-05-20 08:07] LABS: BASOPHILS % (AUTO) 1.1 % (0.0-2.0); EOSINOPHILS % (AUTO) 8.4 % (0.0-3.0); LYMPHOCYTES % (AUTO) 35.5 % (20.0-45.0); MEAN CORPUSCULAR HEMOGLOBIN 34.2 PG (27.0-31.0); MEAN CORPUSCULAR HGB CONC 34.1 G/DL (32.0-36.0); MEAN CORPUSCULAR VOLUME 100 FL (80-99); MEAN PLATELET VOLUME 9.2 FL (6.5-10.1); NEUTROPHILS % (AUTO) 37.9 % (45.0-75.0); PLATELET COUNT 163 K/UL (150-450); RED CELL DISTRIBUTION WIDTH 12.2 % (11.6-14.8); WHITE BLOOD COUNT 4.7 K/UL (4.8-10.8)
[2017-05-20 08:08] VITALS: BP 135/80
[2017-05-20 08:22] LABS: ANION GAP 13 (5-15); CALCIUM 9.8 mg/dL (8.6-10.2); CARBON DIOXIDE 25 mEQ/L (20-30); CHLORIDE 102 mEQ/L (98-107); CREATININE 1.1 mg/dL (0.5-0.9); HEMOLYSIS 9; POTASSIUM 4.1 mEQ/L (3.4-4.9); SODIUM 140 mEQ/L (135-145)
[2017-05-20] MEDS ORDERED: Vitamin B-12 500mcg tab SL SCH (09:00)
[2017-05-20] MEDS ORDERED: Multivitamin w/Minerals tab ORAL SCH (09:00)
[2017-05-20] MEDS ORDERED: Artificial Tears 1.4% Op Soln BOTH EYES SCH (09:00)
[2017-05-20] MEDS: Docusate 100mg cap ORAL SCH (09:07)
[2017-05-20 11:44] VITALS: BP 157/80
[2017-05-20] MEDS ORDERED: Miralax 17gm pkt ORAL PRN (13:45)
[2017-05-20 15:26] VITALS: BP 144/89
[2017-05-20] MEDS: Xarelto 15mg tab ORAL SCH (16:51)
--- NOTE | 2017-05-25 13:49 | Discharge Summary ---
Discharge Summary Hospital Course Date of Admission May 17, 2017 at 11:49 Date of Discharge May 20, 2017 at 18:10 Admitting Diagnosis hypoglycemia Reason for Hospitalization: AMS, hypoglycemia HPI 77y/o female with pmh of HTN, HLD, pAfib, SSS s/p ICD, GERD, gout who presents with AMS, dizziness. Pt states was on MTF for diabetes but did not tolerate 2/2 ?fatigue/weakness. She saw her PCP Dr. Michael who switched her to Glipizide. She took the first dose this AM. Pt states she felt "funny", dizzy, sweaty. Parametics wer called. Glucose found to be 20. Given dextrose and then sugar improved to 100s w/ improved mentation. Pt denies f/c, n/v, d/c, chest pain, SOB , abd pain, dysuria. Pt also states she hit the left side of her head a few days ago, and now has a slight bump w/ some pain. Denies fall or LOC. In ED, BG dropped again to 50s. Pt given juice and started on D10 drip w/ improvement. CT head neg for acute pathology. Consultations Endocrinology Hospital Course Pt was admitted. She was given D10 IVFs w/ improvement in sugars. Her mental status returned to baseline. A1C showed that patient did not have diabetes or prediabetes. Therefore all diabetic meds discontinued. Pt was placed on regular diet. Pt also with generalized weakness. Pt was seen by PT/OT who recommended short- tern SNF but patient refused. Pt was seen by clinical social work aide for home safety evaluation and deemed to be safe to return home. She was discharged home w/ home health. Prior to d/c pt was HD stable, tolerating PO and ambulating w/ FWW. Discharge physical exam General: alert, cooperative, no distress, appears stated age Head: normocephalic, without obvious abnormality, atraumatic Eyes: conjunctivae/corneas clear. PERRL, EOM's intact Throat: lips, mucosa, and tongue normal. MMM Neck: supple, symmetrical, trachea midline, and no JVD Lungs: clear to auscultation bilaterally Heart: regular rate and rhythm, S1, S2 normal, no murmur, click, rub or gallop Abdomen: soft, non-tender, non-distended, bowel sounds normal; no masses or organomegaly Extremities: extremities normal, atraumatic, no cyanosis or edema Pulses: 2+ and symmetric Skin: skin color, texture, turgor normal; no rashes or lesions Neurologic: grossly normal, no focal deficits Discharge Condition Upon Discharge: stable Discharge Disposition Patient was discharged to Home with Home Health(06) Discharge Diagnoses: (1) Hypoglycemia (2) Acute encephalopathy (3) Paroxysmal a-fib (4) Pacemaker (5) HTN (hypertension) (6) GERD (gastroesophageal reflux disease) (7) GALEN (obstructive sleep apnea) (8) HLD (hyperlipidemia) Charlotte Orellana M.D. May 25, 2017 13:49
== END 2017-05-20 18:10 | disposition home health service (06) | DRG 643 ==
LOC: EDBD 10:35 → EMR 11:00 → 2E 11:49 → EDBEDREQSVC 12:30 → EDBEDREQ 15:26 → 2E 18:08 → 4E 05-19 16:02
DX: E16.0 Drug-induced hypoglycemia without coma (principal); G93.40 Encephalopathy, unspecified; S09.90XA Unspecified injury of head, initial encounter; I48.0 Paroxysmal atrial fibrillation; K75.81 Nonalcoholic steatohepatitis (NASH); T38.3X5A Adverse effect of insulin and oral hypoglycemic [antidiabetic] drugs, initial encounter; W19.XXXA Unspecified fall, initial encounter; I10 Essential (primary) hypertension; K21.9 Gastro-esophageal reflux disease without esophagitis; Z95.0 Presence of cardiac pacemaker; Z88.4 Allergy status to anesthetic agent; Z88.0 Allergy status to penicillin; Z88.2 Allergy status to sulfonamides; E78.5 Hyperlipidemia, unspecified; Z79.01 Long term (current) use of anticoagulants
CPT/HCPCS: 36415; 70450; 71010; 80048; 80053; 82607; 82746; 82962; 83036; 83735; 84443; 85025; 93005; J1815; J8499

== ENCOUNTER 2019-04-04 22:10 | Inpatient (IN) | payer BC, MEDICARE ==
[~2019-04-04] VITALS: Ht 160 cm; Wt 87.8 kg
[~2019-04-04 22:10] MED LIST changes: +GLIPIZIDE5 MG ORAL; +HYDROCHLOROTH12.5 M2 ORAL; +METFORMIN HCL500 M1 ORAL; +POTASSIUM99 M3 PO
[2019-04-04 22:30] VITALS: BP 147/82
--- NOTE | 2019-04-04 22:35 | NUR ---
ED Nurse Note: Patient was BIBA from home due to cp x2 days. Patient stated that have lighthededness. AAO x4, VSS at this time, skin is dry warm to touch.
[2019-04-04] MEDS ORDERED: Aspirin Baby 81mg ORAL ONE (22:45)
[2019-04-04 23:02] LABS: BASOPHILS % (AUTO) 1.3 % (0.0-2.0); EOSINOPHILS % (AUTO) 5.1 % (0.0-3.0); HEMATOCRIT 43.6 % (37.0-47.0); HEMOGLOBIN 14.5 G/DL (12.0-16.0); LYMPHOCYTES % (AUTO) 39.3 % (20.0-45.0); MEAN CORPUSCULAR VOLUME 98 FL (80-99); MONOCYTES % (AUTO) 15.6 % (1.0-10.0); NEUTROPHILS % (AUTO) 38.7 % (45.0-75.0); PLATELET COUNT 233 K/UL (150-450); RED BLOOD COUNT 4.44 M/UL (4.20-5.40); RED CELL DISTRIBUTION WIDTH 12.3 % (11.6-14.8); WHITE BLOOD COUNT 6.9 K/UL (4.8-10.8)
[2019-04-04] MEDS ORDERED: XARELTO10 MG ORAL (23:02)
[2019-04-04] MEDS ORDERED: METOPROLOL TART25 MG ORAL (23:02)
[2019-04-04 23:13] LABS: ANION GAP 6 mmol/L (5-15); BLOOD UREA NITROGEN 33 mg/dL (7-18); CALCIUM 9.7 MG/DL (8.5-10.1); CARBON DIOXIDE 32 MMOL/L (21-32); CHLORIDE 103 MMOL/L (98-107); CREATININE 1.3 MG/DL (0.55-1.30); POTASSIUM 3.9 MMOL/L (3.5-5.1); SODIUM 141 MMOL/L (136-145)
[2019-04-04 23:15] LABS: INR 1.2 (0.9-1.1); PARTIAL THROMBOPLASTIN TIME 36 SEC (23-33)
[2019-04-04] MEDS ORDERED: Isovue-370 150ml vial INJ PRN (23:15)
[2019-04-04 23:29] LABS: APPEARANCE,URINE CLOUDY; BILIRUBIN, URINE NEGATIVE (NEGATIVE); COLOR,URINE PALE YELLOW; GLUCOSE, URINE (UA) NEGATIVE (NEGATIVE); KETONES,URINE NEGATIVE (NEGATIVE); LEUKOCYTE ESTERASE ,URINE 1+ (NEGATIVE); NITRITE,URINE NEGATIVE (NEGATIVE); PH,URINE 8 (4.5-8.0); PROTEIN,URINE NEGATIVE (NEGATIVE); UROBILINOGEN,URINE NORMAL MG/DL (0.0-1.0)
[2019-04-04 23:30] VITALS: BP 148/85
[2019-04-04 23:42] LABS: ALANINE AMINOTRANSFERASE 21 U/L (12-78); ALBUMIN 3.8 G/DL (3.4-5.0); ALBUMIN/GLOBULIN RATIO 0.9 (1.0-2.7); ALKALINE PHOSPHATASE 72 U/L (46-116); ASPARTATE AMINO TRANSFERASE 24 U/L (15-37); BILIRUBIN,TOTAL 0.2 MG/DL (0.2-1.0); CKMB 0.8 NG/ML (0.0-3.6); CREATINE KINASE 72 U/L (26-308)
--- NOTE | 2019-04-04 23:42 | Emergency Room Report ---
History of Present Illness General Chief Complaint: Chest Pain Source: Patient Present Illness HPI Patient is an 78-year-old female presented after increased pleuritic type chest pain. Patient reports having increased discomfort is as well as increased headache. She had been noted to be taking anticoagulation. Pain was worse with movement and palpation. Allergies: Coded Allergies: PENICILLINS (Verified Allergy, Mild, 08/30/10) SHELLFISH (Verified Allergy, Mild, 08/30/10) SULFA (SULFONAMIDE ANTIBIOTICS) (Verified Allergy, Mild, 08/30/10) PROCAINE (Unverified Allergy, Unknown, 01/22/17) IODINE (Verified Adverse Reaction, Severe, HYPERSENSATIVITY TO CONTRAST, ) LAST TIME PT WAS GIVEN CONTRAST, SHE HAD TO BE GIVEN HIGH DOSE CORTICOSTEROID, PER PT ORDER ADHESIVE TAPE (Verified Adverse Reaction, Intermediate, DRY, ITCHY SKIN, ) PER PT ORDER Uncoded Allergies: NOVACAINE (Allergy, Mild, 08/30/10) TAPE (Allergy, Unknown, 05/17/17) Nursing Documentation-PMH Hx Hypertension: Yes Hx Pacemaker: Yes Hx Gastrointestinal Problems: Yes - gallstone removal 2015 Physical Exam Vital Signs Date Time Temp Pulse Resp B/P (MAP) Pulse Ox O2 Delivery O2 Flow Rate FiO2 04/04/19 22:14 98.4 98 18 147/82 (103) 96 Room Air Sp02 EP Interpretation: reviewed, normal General Appearance: normal inspection, well appearing, alert, Chronically Ill Head: atraumatic ENT: normal ENT inspection, hearing grossly normal, normal voice Neck: normal inspection, full range of motion, supple, no bony tend Respiratory: normal inspection, lungs clear, normal breath sounds, no respiratory distress, no retraction, no wheezing, other - chest wall tenderness Cardiovascular #1: regular rate, rhythm, edema - trace Gastrointestinal: normal inspection, normal bowel sounds, non tender, soft, no guarding, no hernia Genitourinary: no CVA tenderness Musculoskeletal: normal inspection, back normal, normal range of motion Neurologic: normal inspection, alert, responsive, speech normal, other - antalgic gait Psychiatric: normal inspection, judgement/insight normal, mood/affect normal Medical Decision Making Diagnostic Impression: Primary Impression: Chest pain Additional Impressions: ACS (acute coronary syndrome) Paroxysmal A-fib ER Course Patient presented for chest pain. . Differential diagnosis included but was not limited to acute coronary syndrome, pulmonary embolism, pneumonia, aortic dissection, shingles, pneumothorax, aortic dissection, esophageal rupture, pericarditis. Chest x-ray 1 view interpreted by me showed normal cardiac size without infiltrate. D-dimer was noted to be negative as was patient's initial troponin. She was noted to be anticoagulated with factor X inhibitor. Due to the patient's significant chest discomfort patient was discussed with Dr. Lora for [facility] for inpatient management Labs Test 04/04/19 22:54 04/04/19 23:15 04/05/19 05:19 Prothrombin Time 12.4 SEC (9.30-11.50) Prothromb Time International Ratio 1.2 (0.9-1.1) Activated Partial Thromboplast Time 36 SEC (23-33) D-Dimer < 0.19 mg/L FEU Total Bilirubin 0.2 MG/DL (0.2-1.0) Aspartate Amino Transf (AST/SGOT) 24 U/L (15-37) Alanine Aminotransferase (ALT/SGPT) 21 U/L (12-78) Alkaline Phosphatase 72 U/L (46-116) Total Creatine Kinase 72 U/L (26-308) Creatine Kinase MB 0.8 NG/ML (0.0-3.6) Creatine Kinase MB Relative Index 1.1 Pro-B-Type Natriuretic Peptide 45 pg/mL (0-125) Total Protein 7.9 G/DL (6.4-8.2) Albumin 3.8 G/DL (3.4-5.0) Globulin 4.1 g/dL Albumin/Globulin Ratio 0.9 (1.0-2.7) Lipase 189 U/L (73-393) Urine Color Pale yellow Urine Appearance Cloudy Urine pH 8 (4.5-8.0) Urine Specific [place] 1.015 (1.005-1.035) Urine Protein Negative (NEGATIVE) Urine Glucose (UA) Negative (NEGATIVE) Urine Ketones Negative (NEGATIVE) Urine Blood 3+ (NEGATIVE) Urine Nitrite Negative (NEGATIVE) Urine Bilirubin Negative (NEGATIVE) Urine Urobilinogen Normal MG/DL (0.0-1.0) Urine Leukocyte Esterase 1+ (NEGATIVE) Urine RBC 5-10 /HPF (0 - 2) Urine WBC 0-2 /HPF (0 - 2) Urine Squamous Epithelial Cells Few /LPF (NONE/OCC) Urine Bacteria Few /HPF (NONE) White Blood Count 6.2 K/UL (4.8-10.8) Red Blood Count 4.58 M/UL (4.20-5.40) Hemoglobin 14.9 G/DL (12.0-16.0) Hematocrit 44.8 % (37.0-47.0) Mean Corpuscular Volume 98 FL (80-99) Mean Corpuscular Hemoglobin 32.5 PG (27.0-31.0) Mean Corpuscular Hemoglobin Concent 33.2 G/DL (32.0-36.0) Red Cell Distribution Width 12.4 % (11.6-14.8) Platelet Count 232 K/UL (150-450) Mean Platelet Volume 8.1 FL (6.5-10.1) Neutrophils (%) (Auto) 39.0 % (45.0-75.0) Lymphocytes (%) (Auto) 37.9 % (20.0-45.0) Monocytes (%) (Auto) 16.9 % (1.0-10.0) Eosinophils (%) (Auto) 5.0 % (0.0-3.0) Basophils (%) (Auto) 1.2 % (0.0-2.0) Sodium Level 140 MMOL/L (136-145) Potassium Level 3.3 MMOL/L (3.5-5.1) Chloride Level 103 MMOL/L (98-107) Carbon Dioxide Level 29 MMOL/L (21-32) Anion Gap 8 mmol/L (5-15) Blood Urea Nitrogen 28 mg/dL (7-18) Creatinine 1.1 MG/DL (0.55-1.30) Estimat Glomerular Filtration Rate mL/min (>60) Glucose Level 99 MG/DL (74-106) Calcium Level 9.5 MG/DL (8.5-10.1) Magnesium Level 1.9 MG/DL (1.8-2.4) Troponin I 0.016 ng/mL (0.000-0.056) EKG Diagnostic Results Rate: normal Rhythm: NSR ST Segments: no acute changes Last Vital Signs Date Time Temp Pulse Resp B/P (MAP) Pulse Ox O2 Delivery O2 Flow Rate FiO2 04/04/19 22:14 98.4 98 18 147/82 (103) 96 Room Air Status: improved Disposition: ADMITTED INPATIENT Condition: Stable Goran Stockton MD Apr 04, 2019 23:42
[2019-04-05 01:30] VITALS: BP 145/75
--- NOTE | 2019-04-05 03:10 | NUR ---
ED Nurse Note: Patient was admited to Tele due to CP, SOB, Headache. Patient was transfered to the unit via gurney, with ACLS protocol, with all belongings. AAO x4,. VSS at this time.
--- NOTE | 2019-04-05 03:15 | NUR ---
NURSE NOTES: Received patient from ER, patient on room air, no s/s of respiratory distress. Patient ambulated from stretcher to bed. Bed in low position, locked, bed alarm on, call light within reach. No c/o chest pain, just pressure in the chest, 12/04. Patient states she feels better now. Oriented patient to the room and instructed patient to call for staff assistance when she needs to get out of bed to ambulate to the bathroom.
[2019-04-05 03:30] VITALS: BP 121/62
--- NOTE | 2019-04-05 04:20 | NUR ---
NURSE NOTES: Received call back from Dr. Porter covering for Dr. Mabry for admission orders.
[2019-04-05 05:35] LABS: BASOPHILS % (AUTO) 1.2 % (0.0-2.0); HEMATOCRIT 44.8 % (37.0-47.0); HEMOGLOBIN 14.9 G/DL (12.0-16.0); LYMPHOCYTES % (AUTO) 37.9 % (20.0-45.0); MEAN CORPUSCULAR VOLUME 98 FL (80-99); MONOCYTES % (AUTO) 16.9 % (1.0-10.0); PLATELET COUNT 232 K/UL (150-450); RED BLOOD COUNT 4.58 M/UL (4.20-5.40); RED CELL DISTRIBUTION WIDTH 12.4 % (11.6-14.8); WHITE BLOOD COUNT 6.2 K/UL (4.8-10.8)
[2019-04-05 05:37] LABS: ANION GAP 8 mmol/L (5-15); BLOOD UREA NITROGEN 28 mg/dL (7-18); CALCIUM 9.5 MG/DL (8.5-10.1); CARBON DIOXIDE 29 MMOL/L (21-32); CHLORIDE 103 MMOL/L (98-107); CREATININE 1.1 MG/DL (0.55-1.30); POTASSIUM 3.3 MMOL/L (3.5-5.1); SODIUM 140 MMOL/L (136-145)
--- NOTE | 2019-04-05 06:15 | NUR ---
NURSE NOTES: Left message with Dr. Mabry's answering service to notify Dr. Porter regarding potassium level of 3.3.
--- NOTE | 2019-04-05 07:30 | NUR ---
HAND-OFF: Report given to Carolina CABALLERO. Plan of care endorsed.
--- NOTE | 2019-04-05 07:51 | NUR ---
NURSE NOTES: Received patient from nurse Tello. Patient awake in bed eating breakfast. No s/sx of pain or discomfort. will continue to monitor
[2019-04-05 08:00] VITALS: BP 120/67
[2019-04-05] MEDS: Vitamin B-12 500mcg tab ORAL SCH (08:49)
[2019-04-05] MEDS: Vitamin D 1000 IU Tab ORAL SCH (08:49)
[2019-04-05] MEDS: Metoprolol Succinate XL 25mg tab ORAL SCH (08:49)
--- NOTE | 2019-04-05 11:00 | Diagnostic Imaging Report ---
Indications: Headache for one day Technique: Spiral acquisitions obtained through the brain. Angled axial and coronal 5 x 5 mm slices were reconstructed. Total dose length product 1379.6 mGycm. CTDI vol(s) 70.38 mGy. Dose reduction achieved using automated exposure control Comparison: 05/17/2017 Findings: No acute intracranial hemorrhage nor edema. No mass effect nor midline shift. There is mild periventricular deep white matter low-attenuation consistent with chronic microvascular ischemic change. Normal small-white differentiation. Normal for age ventricles and extra-axial CSF spaces. The mastoids are clear. The calvarium is intact. The visualized sinuses are clear. No significant interim change Impression: Mild age-related changes Negative for acute intracranial bleed or mass effect This agrees with the preliminary interpretation provided overnight by [facility] teleradiology service. The CT scanner at [facility] is accredited by the [employer] and the scans are performed using protocols designed to limit radiation exposure to as low as reasonably achievable to attain images of sufficient resolution adequate for diagnostic evaluation.
[2019-04-05 12:00] VITALS: BP 119/20
--- NOTE | 2019-04-05 13:00 | Neurology Progress Note ---
Interim History Interim History ROS Limited/Unobtainable: No Interim History 78-year-old female presented after increased pleuritic type chest pain. Patient reports having increased discomfort is as well as increased headache. She had been noted to be taking anticoagulation. Pain was worse with movement and palpation. headache - ct brain no hemorrhage thorbbing bilateral with photofobia. Objective Physical Exam Last Vital Signs Date Time Temp Pulse Resp B/P (MAP) Pulse Ox O2 Delivery O2 Flow Rate FiO2 04/05/19 12:00 97.4 70 14 119/20 (53) 96 04/05/19 09:00 Room Air Laboratory Tests Test 04/04/19 22:54 04/04/19 23:15 04/05/19 05:19 04/05/19 10:55 White Blood Count 6.9 K/UL (4.8-10.8) 6.2 K/UL (4.8-10.8) Red Blood Count 4.44 M/UL (4.20-5.40) 4.58 M/UL (4.20-5.40) Hemoglobin 14.5 G/DL (12.0-16.0) 14.9 G/DL (12.0-16.0) Hematocrit 43.6 % (37.0-47.0) 44.8 % (37.0-47.0) Mean Corpuscular Volume 98 FL (80-99) 98 FL (80-99) Mean Corpuscular Hemoglobin 32.8 PG (27.0-31.0) H 32.5 PG (27.0-31.0) H Mean Corpuscular Hemoglobin Concent 33.3 G/DL (32.0-36.0) 33.2 G/DL (32.0-36.0) Red Cell Distribution Width 12.3 % (11.6-14.8) 12.4 % (11.6-14.8) Platelet Count 233 K/UL (150-450) 232 K/UL (150-450) Mean Platelet Volume 7.3 FL (6.5-10.1) 8.1 FL (6.5-10.1) Neutrophils (%) (Auto) 38.7 % (45.0-75.0) L 39.0 % (45.0-75.0) L Lymphocytes (%) (Auto) 39.3 % (20.0-45.0) 37.9 % (20.0-45.0) Monocytes (%) (Auto) 15.6 % (1.0-10.0) H 16.9 % (1.0-10.0) H Eosinophils (%) (Auto) 5.1 % (0.0-3.0) H 5.0 % (0.0-3.0) H Basophils (%) (Auto) 1.3 % (0.0-2.0) 1.2 % (0.0-2.0) Prothrombin Time 12.4 SEC (9.30-11.50) H Prothromb Time International Ratio 1.2 (0.9-1.1) H Activated Partial Thromboplast Time 36 SEC (23-33) H D-Dimer < 0.19 mg/L FEU Sodium Level 141 MMOL/L (136-145) 140 MMOL/L (136-145) Potassium Level 3.9 MMOL/L (3.5-5.1) 3.3 MMOL/L (3.5-5.1) L Chloride Level 103 MMOL/L (98-107) 103 MMOL/L (98-107) Carbon Dioxide Level 32 MMOL/L (21-32) 29 MMOL/L (21-32) Anion Gap 6 mmol/L (5-15) 8 mmol/L (5-15) Blood Urea Nitrogen 33 mg/dL (7-18) H 28 mg/dL (7-18) H Creatinine 1.3 MG/DL (0.55-1.30) 1.1 MG/DL (0.55-1.30) Estimat Glomerular Filtration Rate mL/min (>60) mL/min (>60) Glucose Level 98 MG/DL (74-106) 99 MG/DL (74-106) Calcium Level 9.7 MG/DL (8.5-10.1) 9.5 MG/DL (8.5-10.1) Total Bilirubin 0.2 MG/DL (0.2-1.0) Aspartate Amino Transf (AST/SGOT) 24 U/L (15-37) Alanine Aminotransferase (ALT/SGPT) 21 U/L (12-78) Alkaline Phosphatase 72 U/L (46-116) Total Creatine Kinase 72 U/L (26-308) Creatine Kinase MB 0.8 NG/ML (0.0-3.6) Creatine Kinase MB Relative Index 1.1 Troponin I 0.006 ng/mL (0.000-0.056) 0.016 ng/mL (0.000-0.056) 0.000 ng/mL (0.000-0.056) Pro-B-Type Natriuretic Peptide 45 pg/mL (0-125) Total Protein 7.9 G/DL (6.4-8.2) Albumin 3.8 G/DL (3.4-5.0) Globulin 4.1 g/dL Albumin/Globulin Ratio 0.9 (1.0-2.7) L Lipase 189 U/L (73-393) Urine Color Pale yellow Urine Appearance Cloudy Urine pH 8 (4.5-8.0) Urine Specific [place] 1.015 (1.005-1.035) Urine Protein Negative (NEGATIVE) Urine Glucose (UA) Negative (NEGATIVE) Urine Ketones Negative (NEGATIVE) Urine Blood 3+ (NEGATIVE) H Urine Nitrite Negative (NEGATIVE) Urine Bilirubin Negative (NEGATIVE) Urine Urobilinogen Normal MG/DL (0.0-1.0) Urine Leukocyte Esterase 1+ (NEGATIVE) H Urine RBC 5-10 /HPF (0 - 2) H Urine WBC 0-2 /HPF (0 - 2) Urine Squamous Epithelial Cells Few /LPF (NONE/OCC) Urine Bacteria Few /HPF (NONE) Magnesium Level 1.9 MG/DL (1.8-2.4) General: well developed Head: normocophalic Neck: no rigidity EENT: benign Neurologic Exam Mental Status: awake, alert, oriented x4, normal cognition, good mathematical skills, normal recent memory, normal remote memory, preserved visuospatial function Speech: normal speech, no dysarthia Language: normal language, no aphasia Cranial Nerves III, IV, : PERRLA, EOMI, pupils Cranial Nerve V: normal facial sensations, temporales function normal, masseters function normal, pterygoids function normal Motor System: normal muscle tone, strength 5/5, no involuntary movement, no muscle wasting Sensory: normal pinprick, normal light touch, normal position sense, normal graphesthesia Impression/Recommendations Problems: (1) Sick sinus syndrome (2) GERD (gastroesophageal reflux disease) (3) HTN (hypertension) (4) Pacemaker (5) Acute encephalopathy (6) Hypoglycemia (7) HLD (hyperlipidemia) (8) GALEN (obstructive sleep apnea) (9) ACS (acute coronary syndrome) (10) Chest pain (11) Paroxysmal a-fib Status: stable Diagnostic Impression headache with migrane features IVFs sleep higiene tylenol for pain can use morphine federicon Margarito Mattson MD Apr 05, 2019 13:00
--- NOTE | 2019-04-05 13:12 | NUR ---
*-* NO INSURANCE INFORMATION IN THE BAR UNBLE TO SEND CLINICALS OR REVIEWS *-*
--- NOTE | 2019-04-05 15:37 | Cardiology Report ---
APPROVED REPORT EXAM: Two-dimensional and M-mode echocardiogram with Doppler and color Doppler. INDICATION Chest Pain M-Mode DIMENSIONS IVSd1.8 (0.7-1.1cm)Left Atrium (MM)3.8 (1.6-4.0cm) LVDd3.7 (3.5-5.6cm)Aortic Root2.5 (2.0-3.7cm) PWd1.6 (0.7-1.1cm)Aortic Cusp Exc.1.5 (1.5-2.0cm) IVSs2.8 cm LVDs1.4 (2.5-4.0cm) PWs2.1 cm Normal left ventricular chamber size, systolic function and wall motion. Left ventricular ejection fraction estimated to be 60 %. Mild left ventricular hypertrophy. Anterior Echo-free space, may be due to pericardial fat or effusion. All other cardiac chamber sizes are within normal limits. Focal aortic valve sclerosis with adequate cusp excursion. Thickened mitral valve leaflets with normal excursion. Mild mitral annulus and aortic root calcification. Pulmonic valve not well visualized. Normal tricuspid valve structure. IVC is normal in size with physiological collapse. A color flow and spectral Doppler study was performed and revealed: No aortic regurgitation. Mild mitral regurgitation. Mitral diastolic velocities suggest mild left ventricular diastolic dysfunction (Grade I). Mild tricuspid regurgitation. Tricuspid systolic velocities suggests peak right ventricular systolic pressure of 27 mmHg. Mild pulmonic regurgitation present.
[2019-04-05 16:00] VITALS: BP 133/77
[2019-04-05] MEDS ORDERED: Xarelto 15mg tab ORAL SCH (16:30)
[2019-04-05] MEDS: Xarelto 10mg tab ORAL SCH (17:12)
--- NOTE | 2019-04-05 19:10 | NUR ---
NURSE NOTES: Received report from Carolina RN, pt. in bed awake, A/O x's4- able to make needs known, booth manager on, no signs or symptoms of acute cardiac or respiratory distress noted, bed in lowest position and call light within easy reach, pt. aware to ask for assist when ambulating, bed alarm on, side rails up x's 3 and safety brakes engaged, pt. appears to be sating well on room air at 98%- no distress noted, pt. appears to be clean and dry, LFA 22G IV intact and patent, safety measures continued, will continued with plan of care.
--- NOTE | 2019-04-05 19:34 | NUR ---
HAND-OFF: Report given to Devora Olvera. Plan of care endorsed
--- NOTE | 2019-04-05 19:59 | History and Physical ---
History of Present Illness General Date patient seen: Apr 05, 2019 Reason for Hospitalization: Chest Pain Present Illness Allergies: Coded Allergies: PENICILLINS (Verified Allergy, Mild, 08/30/10) SHELLFISH (Verified Allergy, Mild, 08/30/10) SULFA (SULFONAMIDE ANTIBIOTICS) (Verified Allergy, Mild, 08/30/10) PROCAINE (Unverified Allergy, Unknown, 01/22/17) IODINE (Verified Adverse Reaction, Severe, HYPERSENSATIVITY TO CONTRAST, ) LAST TIME PT WAS GIVEN CONTRAST, SHE HAD TO BE GIVEN HIGH DOSE CORTICOSTEROID, PER PT ORDER ADHESIVE TAPE (Verified Adverse Reaction, Intermediate, DRY, ITCHY SKIN, ) PER PT ORDER Uncoded Allergies: NOVACAINE (Allergy, Mild, 08/30/10) TAPE (Allergy, Unknown, 05/17/17) Medication History Scheduled Cholecalciferol (Vitamin D3)* (Vitamin D*), 2,000 UNITS ORAL DAILY, (Reported) Cyanocobalamin (Vitamin B-12) (B-12), 1,000 MCG PO DAILY, (Reported) Esomeprazole Magnesium (Nexium), 40 MG ORAL DAILY, (Reported) Hydrochlorothiazide* (Hydrochlorothiazide*), 12.5 MG ORAL DAILY, (Reported) Metoprolol Tartrate* (Metoprolol Tartrate*), 25 MG ORAL EVERY 12 HOURS, ( Reported) Mu-Vits-Min Th/Lycopene/Lutein (Centrum Silver Tablet), 1 EACH PO DAILY, ( Reported) Olmesartan Medoxomil (Benicar), 5 MG ORAL DAILY, (Reported) Olopatadine Hcl (Pataday), 2.5 ML OP DAILY, (Reported) Polyvinyl Alcohol/Povidone/Pf (Refresh Classic Eye Drops), 1 EACH OP BID, ( Reported) Rivaroxaban (Xarelto*), 20 MG ORAL DAILY, (Reported) Simvastatin (Zocor), 40 MG ORAL BEDTIME, (Reported) Miscellaneous Medications Potassium Gluconate (Potassium), 10 MG PO, (Reported) Patient History History Provided By: Patient Healthcare decision maker Resuscitation status Full Code Advanced Directive on File No Family History Family History: FH: stomach cancer Review of Systems ROS Narrative General ROS:~no weight loss or fever Psychological ROS:~no depression or mood changes, no memory loss Ophthalmic ROS:~no visual changes or eye irritation ENT ROS:~no nasal congestion, hearing loss, dizziness Allergy and Immunology ROS:~no allergic symptoms or urticaria Hematological and Lymphatic ROS:~no swollen glands, unusual bleeding or bruising Endocrine ROS:~no polyuria, polydipsia, weight changes, temperature intolerance Respiratory ROS:~no cough, shortness of breath, or wheezing Cardiovascular ROS:~c/o chest discomfort Gastrointestinal ROS:~no abdominal pain, change in bowel habits, or black or bloody stools~c/o constipation~ Musculoskeletal ROS:~no myalgias or arthralgias Neurological ROS:~no TIA or stroke symptoms Dermatological ROS:~no new or changing skin lesions, rashes or pruritis Physical Exam Last 24 Hour Vital Signs Date Time Temp Pulse Resp B/P (MAP) Pulse Ox O2 Delivery O2 Flow Rate FiO2 04/05/19 16:00 64 04/05/19 16:00 97.2 79 14 133/77 (95) 96 04/05/19 12:00 68 04/05/19 12:00 97.4 70 14 119/20 (53) 96 04/05/19 09:00 Room Air 04/05/19 08:49 71 120/67 04/05/19 08:00 97.0 71 18 120/67 (84) 100 04/05/19 08:00 80 04/05/19 03:30 Room Air 04/05/19 03:30 98.2 70 16 121/62 (81) 98 04/05/19 03:29 75 04/05/19 03:10 98.4 68 16 145/75 99 Room Air 04/05/19 01:30 98.4 68 16 145/75 99 Room Air 04/04/19 23:30 98.4 66 14 148/85 99 Room Air 04/04/19 22:30 98 18 Room Air 04/04/19 22:30 98.4 18 147/82 96 Room Air 04/04/19 22:14 98.4 98 18 147/82 (103) 96 Room Air Intake and Output 04/04/19 04/05/19 19:00 07:00 Intake Total 120 ml Balance 120 ml Intake Oral 120 ml # Voids 2 Laboratory Tests Test 04/04/19 22:54 04/04/19 23:15 04/05/19 05:19 04/05/19 10:55 White Blood Count 6.9 K/UL (4.8-10.8) 6.2 K/UL (4.8-10.8) Red Blood Count 4.44 M/UL (4.20-5.40) 4.58 M/UL (4.20-5.40) Hemoglobin 14.5 G/DL (12.0-16.0) 14.9 G/DL (12.0-16.0) Hematocrit 43.6 % (37.0-47.0) 44.8 % (37.0-47.0) Mean Corpuscular Volume 98 FL (80-99) 98 FL (80-99) Mean Corpuscular Hemoglobin 32.8 PG (27.0-31.0) H 32.5 PG (27.0-31.0) H Mean Corpuscular Hemoglobin Concent 33.3 G/DL (32.0-36.0) 33.2 G/DL (32.0-36.0) Red Cell Distribution Width 12.3 % (11.6-14.8) 12.4 % (11.6-14.8) Platelet Count 233 K/UL (150-450) 232 K/UL (150-450) Mean Platelet Volume 7.3 FL (6.5-10.1) 8.1 FL (6.5-10.1) Neutrophils (%) (Auto) 38.7 % (45.0-75.0) L 39.0 % (45.0-75.0) L Lymphocytes (%) (Auto) 39.3 % (20.0-45.0) 37.9 % (20.0-45.0) Monocytes (%) (Auto) 15.6 % (1.0-10.0) H 16.9 % (1.0-10.0) H Eosinophils (%) (Auto) 5.1 % (0.0-3.0) H 5.0 % (0.0-3.0) H Basophils (%) (Auto) 1.3 % (0.0-2.0) 1.2 % (0.0-2.0) Prothrombin Time 12.4 SEC (9.30-11.50) H Prothromb Time International Ratio 1.2 (0.9-1.1) H Activated Partial Thromboplast Time 36 SEC (23-33) H D-Dimer < 0.19 mg/L FEU Sodium Level 141 MMOL/L (136-145) 140 MMOL/L (136-145) Potassium Level 3.9 MMOL/L (3.5-5.1) 3.3 MMOL/L (3.5-5.1) L Chloride Level 103 MMOL/L (98-107) 103 MMOL/L (98-107) Carbon Dioxide Level 32 MMOL/L (21-32) 29 MMOL/L (21-32) Anion Gap 6 mmol/L (5-15) 8 mmol/L (5-15) Blood Urea Nitrogen 33 mg/dL (7-18) H 28 mg/dL (7-18) H Creatinine 1.3 MG/DL (0.55-1.30) 1.1 MG/DL (0.55-1.30) Estimat Glomerular Filtration Rate mL/min (>60) mL/min (>60) Glucose Level 98 MG/DL (74-106) 99 MG/DL (74-106) Calcium Level 9.7 MG/DL (8.5-10.1) 9.5 MG/DL (8.5-10.1) Total Bilirubin 0.2 MG/DL (0.2-1.0) Aspartate Amino Transf (AST/SGOT) 24 U/L (15-37) Alanine Aminotransferase (ALT/SGPT) 21 U/L (12-78) Alkaline Phosphatase 72 U/L (46-116) Total Creatine Kinase 72 U/L (26-308) Creatine Kinase MB 0.8 NG/ML (0.0-3.6) Creatine Kinase MB Relative Index 1.1 Troponin I 0.006 ng/mL (0.000-0.056) 0.016 ng/mL (0.000-0.056) 0.000 ng/mL (0.000-0.056) Pro-B-Type Natriuretic Peptide 45 pg/mL (0-125) Total Protein 7.9 G/DL (6.4-8.2) Albumin 3.8 G/DL (3.4-5.0) Globulin 4.1 g/dL Albumin/Globulin Ratio 0.9 (1.0-2.7) L Lipase 189 U/L (73-393) Urine Color Pale yellow Urine Appearance Cloudy Urine pH 8 (4.5-8.0) Urine Specific [place] 1.015 (1.005-1.035) Urine Protein Negative (NEGATIVE) Urine Glucose (UA) Negative (NEGATIVE) Urine Ketones Negative (NEGATIVE) Urine Blood 3+ (NEGATIVE) H Urine Nitrite Negative (NEGATIVE) Urine Bilirubin Negative (NEGATIVE) Urine Urobilinogen Normal MG/DL (0.0-1.0) Urine Leukocyte Esterase 1+ (NEGATIVE) H Urine RBC 5-10 /HPF (0 - 2) H Urine WBC 0-2 /HPF (0 - 2) Urine Squamous Epithelial Cells Few /LPF (NONE/OCC) Urine Bacteria Few /HPF (NONE) Magnesium Level 1.9 MG/DL (1.8-2.4) Height (Feet): 5 Height (Inches): 3.00 Weight (Pounds): 193 Medications Current Medications Medications (Trade) Dose Ordered Sig/Kenneth Route PRN Reason Start Time Stop Time Status Last Admin Dose Admin Atorvastatin Calcium (Lipitor) 80 mg BEDTIME ORAL 04/05/19 21:00 05/05/19 20:59 Cyanocobalamin (Vitamin B-12) 1,000 mcg DAILY ORAL 04/05/19 09:00 05/05/19 08:59 04/05/19 08:49 Iopamidol (Isovue-370 150ml) 150 ml NOW PRN INJ Radiology Procedure 04/04/19 23:15 04/06/19 23:11 Ketotifen Fumarate (Zatidor) 1 drop DAILY BOTH EYES 04/06/19 09:00 05/06/19 08:59 Metoprolol Succinate (Toprol XL) 25 mg DAILY ORAL 04/05/19 09:00 05/05/19 08:59 04/05/19 08:49 Non-Formulary Medication (Non-Formulary Med) 1 ea DAILY ORAL 04/05/19 09:00 05/05/19 08:59 UNV Non-Formulary Medication (Non-Formulary Med) 1 ea DAILY ORAL 04/05/19 09:00 05/05/19 08:59 UNV Rivaroxaban (Xarelto) 20 mg DAILY@1630 ORAL 04/05/19 16:30 05/05/19 16:29 04/05/19 17:12 Vitamin D (Vitamin D) 2,000 intlu DAILY ORAL 04/05/19 09:00 05/05/19 08:59 04/05/19 08:49 Objective Narrative General appearance:~~alert, cooperative, no distress, appears stated age Head:~~Normocephalic, without obvious abnormality, atraumatic Eyes:~~conjunctivae/corneas clear. PERRL, EOM's intact. Fundi benign Throat:~~Lips, mucosa, and tongue normal. Teeth and gums normal Neck:~~supple, symmetrical, trachea midline, no adenopathy, thyroid: not enlarged, symmetric, no tenderness/mass/nodules, no carotid bruit and no JVD Lungs:~~clear to auscultation bilaterally Heart:~~regular rate and rhythm, S1, S2 normal, no murmur, click, rub or gallop Abdomen:~~soft, non-tender. Bowel sounds normal. No masses, ~no organomegaly Extremities:~~extremities normal, atraumatic, no cyanosis or edema Pulses:~~2+ and symmetric Skin:~~Skin color, texture, turgor normal. No rashes or lesions Neurologic:~~Grossly normal Assessment/Plan Status: stable Assessment/Plan: 78 female with pmh of HTN, HLD, pAfib, sick sinus syndrome s/p dual-chamber pacemaker implantation (March 2012), GERD, AGLEN admitted to r/o ACS #Chest pain, atypical, r/o ACS -serial troponins and EKG -Cardiology consult -admit to tele -cardiac diet -pain control #Paraxysmal atrial fibrillation #Sick sinus s/p DCPM -rate controlled -Cont metoprolol -cont xarelto -tele monitoring -cardiology consulted #GERD -cont PPT Code: Mortgage Coordinator of note may not reflect time of encounter Madeline Gonzales MD Apr 05, 2019 19:59
[2019-04-05 20:00] VITALS: BP 119/56
--- NOTE | 2019-04-05 20:00 | General Progress Note ---
Advance Care Planning Advance Care Planning Advance Care Planning [facility] An independent Hospitalist group, where every patient is our [facility] Internal Medicine Hospitalist Advanced Care Planning Note Please contact us at Date of Discussion: A [id number] discussion with the pt regarding the patient's advanced care planning took place during this hospitalization on the above date. The discussion included the explanation and discussion of advance directives and associated forms/documents, as well as the patient's current code status. We also discussed at length the patient's medical conditions (both acute and chronic), general prognosis, treatment options, and goals of care. The following summarizes the discussion: Advance Care Planning/Goals of Care: - Will attempt to fill out an AD and/or POLST with the patient prior to discharge, if not already completed - Continue current evaluation and management of any acute and chronic medical issues - Will continue to support the patient/family - Will continue to discuss both short- and long-term goals of care DPOA-HC/Surrogate Decision Maker: None currently appointed Code Status: Full Code Advanced Care Planning Forms/Documents Completed: Deferred until later encounter/visit A total of 19 minutes was spent on this discussion, including counseling, answering questions, and completing, if any, pertinent advanced care planning forms/documents. Time of note may not reflect time of encounter. Madeline Gonzales MD Apr 05, 2019 20:00
[2019-04-05] MEDS: Atorvastatin 80mg tab ORAL SCH (20:27)
[2019-04-06] VITALS: BP 115/65
[2019-04-06 04:00] VITALS: BP 143/80
--- NOTE | 2019-04-06 07:01 | NUR ---
HAND-OFF: Report given to Jim RN/ Soni RN, pt. remains stable and no signs of distress noted.
--- NOTE | 2019-04-06 07:20 | NUR ---
NURSE NOTES: Received patient from Wade Lozoya., Patient asleep in bed. no signs or symptoms of distress. Bed locked in lowest position, side rails X2 up, call gallo within reached. will monitor.
[2019-04-06] MEDS ORDERED: Artificial Tears 1.4% Op Soln BOTH EYES PRN (07:45)
[2019-04-06 08:00] VITALS: BP 123/89
[2019-04-06] MEDS: Vitamin D 1000 IU Tab ORAL SCH (08:29)
[2019-04-06] MEDS: Vitamin B-12 500mcg tab ORAL SCH (08:29)
[2019-04-06] MEDS: Metoprolol Succinate XL 25mg tab ORAL SCH (08:30)
[2019-04-06] MEDS: Ketotifen Fumarate 0.035% 5ml BOTH EYES SCH (08:30)
--- NOTE | 2019-04-06 11:48 | NUR ---
CASE MANAGEMENT:REVIEW 78 YR OLD FEMALE BIBA FROM HOME CC; CHEST PAIN. LIGHTHEADEDNESS SI: ACUTE CORONARY SYNDROME.PAFIB 98.5 98 18 147/82 96% ON RA TROPONIN(-) IS: ASA PO K-DUR PO CTA CHEST CT HEAD CHEST XRAY : TO TELEMETRY DCP: HOME
[2019-04-06 12:00] VITALS: BP 131/81
--- NOTE | 2019-04-06 12:44 | Consultation ---
History of Present Illness General Date patient seen: Apr 06, 2019 Reason for Hospitalization: Chest Pain Present Illness HPI This is a very pleasant 78-year-old female who presented to [facility] with complaints of atypical chest pain, headache, and regurgitation. Patient was admitted for further work-up and medical management. Patient is been seen by neurology and headaches seem to be migraine type without acute bleed as per CT head. Patient's labs noted and otherwise unremarkable. Does not seem to be having an acute coronary attack at this time and given the characteristics of her chest pain surgery was called to evaluate. Patient states that the pain is intermittent and in between her ribs mainly on both sides but left greater than right at times. States that pain is worse with movement and turning. States that she has not had any trauma or falls recently but at times does require to hold herself with her cane. No nausea or vomiting but does have reflux type symptoms. Does have GERD symptoms. Patient seen, patient evaluate, chart reviewed. Allergies: Coded Allergies: PENICILLINS (Verified Allergy, Mild, 08/30/10) SHELLFISH (Verified Allergy, Mild, 08/30/10) SULFA (SULFONAMIDE ANTIBIOTICS) (Verified Allergy, Mild, 08/30/10) PROCAINE (Unverified Allergy, Unknown, 01/22/17) IODINE (Verified Adverse Reaction, Severe, HYPERSENSATIVITY TO CONTRAST, ) LAST TIME PT WAS GIVEN CONTRAST, SHE HAD TO BE GIVEN HIGH DOSE CORTICOSTEROID, PER PT ORDER ADHESIVE TAPE (Verified Adverse Reaction, Intermediate, DRY, ITCHY SKIN, ) PER PT ORDER Uncoded Allergies: NOVACAINE (Allergy, Mild, 08/30/10) TAPE (Allergy, Unknown, 05/17/17) Medication History Scheduled Cholecalciferol (Vitamin D3)* (Vitamin D*), 2,000 UNITS ORAL DAILY, (Reported) Cyanocobalamin (Vitamin B-12) (B-12), 1,000 MCG PO DAILY, (Reported) Esomeprazole Magnesium (Nexium), 40 MG ORAL DAILY, (Reported) Hydrochlorothiazide* (Hydrochlorothiazide*), 12.5 MG ORAL DAILY, (Reported) Metoprolol Tartrate* (Metoprolol Tartrate*), 25 MG ORAL EVERY 12 HOURS, ( Reported) Mu-Vits-Min Th/Lycopene/Lutein (Centrum Silver Tablet), 1 EACH PO DAILY, ( Reported) Olmesartan Medoxomil (Benicar), 5 MG ORAL DAILY, (Reported) Olopatadine Hcl (Pataday), 2.5 ML OP DAILY, (Reported) Polyvinyl Alcohol/Povidone/Pf (Refresh Classic Eye Drops), 1 EACH OP BID, ( Reported) Rivaroxaban (Xarelto*), 20 MG ORAL DAILY, (Reported) Simvastatin (Zocor), 40 MG ORAL BEDTIME, (Reported) Miscellaneous Medications Potassium Gluconate (Potassium), 10 MG PO, (Reported) Patient History History Provided By: Patient, Medical Record, PMD Healthcare decision maker Resuscitation status Full Code Advanced Directive on File No Past Medical/Surgical History Past Medical/Surgical History: (1) ACS (acute coronary syndrome) (2) Chest pain (3) Paroxysmal a-fib (4) Sick sinus syndrome (5) GERD (gastroesophageal reflux disease) (6) Hypoglycemia (7) HTN (hypertension) (8) Pacemaker (9) HLD (hyperlipidemia) (10) GALEN (obstructive sleep apnea) (11) Acute encephalopathy (12) History of cholecystectomy (13) No significant social history (14) Lives alone without help available Family History Family History: FH: stomach cancer Review of Systems Review of Symptoms General ROS: no weight loss or fever Psychological ROS: no depression or mood changes, no memory loss Ophthalmic ROS: no visual changes or eye irritation ENT ROS: no nasal congestion, hearing loss, dizziness Allergy and Immunology ROS: no allergic symptoms or urticaria Hematological and Lymphatic ROS: no swollen glands, unusual bleeding or bruising Endocrine ROS: no polyuria, polydipsia, weight changes, temperature intolerance Respiratory ROS: no cough, shortness of breath, or wheezing Cardiovascular ROS: no chest pain or dyspnea on exertion Gastrointestinal ROS: denies abdominal pain, no bright red blood in stool. Musculoskeletal ROS: no myalgias or arthralgias Neurological ROS: no TIA or stroke symptoms Dermatological ROS: no new or changing skin lesions, rashes or pruritis Physical Exam Physical Exam General appearance: alert, cooperative, no distress, appears stated age Head: Normocephalic, without obvious abnormality, atraumatic Eyes: conjunctivae/corneas clear. PERRL, EOM's intact. Fundi benign Throat: Lips, mucosa, and tongue normal. Teeth and gums normal Neck: supple, symmetrical, trachea midline, no adenopathy, thyroid: not enlarged, symmetric, no tenderness/mass/nodules, no carotid bruit and no JVD Lungs: clear to auscultation bilaterally Heart: regular rate and rhythm, S1, S2 normal, no murmur, click, rub or gallop Abdomen: soft, non-tender. Bowel sounds normal. No masses, no organomegaly Extremities: extremities normal, atraumatic, no cyanosis or edema Pulses: 2+ and symmetric Skin: Skin color, texture, turgor normal. No rashes or lesions Neurologic: Grossly normal Last 24 Hour Vital Signs Date Time Temp Pulse Resp B/P (MAP) Pulse Ox O2 Delivery O2 Flow Rate FiO2 04/06/19 09:00 Room Air 04/06/19 08:30 80 123/89 04/06/19 08:00 76 04/06/19 08:00 98.3 80 22 123/89 (100) 97 04/06/19 04:00 97.7 69 18 143/80 (101) 98 04/06/19 03:51 68 04/06/19 00:00 77 04/06/19 00:00 98.5 68 18 115/65 (82) 96 04/05/19 21:00 Room Air 04/05/19 20:00 68 04/05/19 20:00 98.1 68 18 119/56 (77) 97 04/05/19 16:00 64 04/05/19 16:00 97.2 79 14 133/77 (95) 96 Intake and Output 04/05/19 04/06/19 19:00 07:00 # Voids 3 Height (Feet): 5 Height (Inches): 3.00 Weight (Pounds): 193 Medications Current Medications Medications (Trade) Dose Ordered Sig/Kenneth Route PRN Reason Start Time Stop Time Status Last Admin Dose Admin Artificial Tears (Akwa-Tears) 1 drop QIDPRN PRN BOTH EYES dry eyes 04/06/19 07:45 05/06/19 07:44 Atorvastatin Calcium (Lipitor) 80 mg BEDTIME ORAL 04/05/19 21:00 05/05/19 20:59 04/05/19 20:27 Cyanocobalamin (Vitamin B-12) 1,000 mcg DAILY ORAL 04/05/19 09:00 05/05/19 08:59 04/06/19 08:29 Hydrochlorothiazide (Hydrodiuril) 12.5 mg DAILY ORAL 04/07/19 09:00 05/07/19 08:59 Iopamidol (Isovue-370 150ml) 150 ml NOW PRN INJ Radiology Procedure 04/04/19 23:15 04/06/19 23:11 Ketotifen Fumarate (Zatidor) 1 drop DAILY BOTH EYES 04/06/19 09:00 05/06/19 08:59 04/06/19 08:30 Metoprolol Succinate (Toprol XL) 25 mg DAILY ORAL 04/05/19 09:00 05/05/19 08:59 04/06/19 08:30 Non-Formulary Medication (Non-Formulary Med) 1 ea DAILY ORAL 04/05/19 09:00 05/05/19 08:59 UNV Rivaroxaban (Xarelto) 20 mg DAILY@1630 ORAL 04/05/19 16:30 05/05/19 16:29 04/05/19 17:12 Vitamin D (Vitamin D) 2,000 intlu DAILY ORAL 04/05/19 09:00 05/05/19 08:59 04/06/19 08:29 Assessment/Plan Problem List: (1) ACS (acute coronary syndrome) ICD Codes: I24.9 - Acute ischemic heart disease, unspecified SNOMED: 050905721 (2) Chest pain Assessment & Plan: This is a 78-year-old female with atypical chest pain and headache and reflux symptoms. Able to reproduce chest pain with palpation of both right and left thorax. Left thorax more tender than right. No renographic or evidence of fractures. Pain mainly muscular in nature as per description from patient's history. Troponins negative. Does not seem to be having a acute coronary event and more likely does seem to be costochondritis. Nonsteroidal anti-inflammatory for pain control Tylenol okay as well. Physical therapy occupational therapy Diet as tolerated Thank you for this consultation we will follow with recognitions ICD Codes: R07.9 - Chest pain, unspecified SNOMED: 97037373 (3) Paroxysmal a-fib ICD Codes: I48.0 - Paroxysmal atrial fibrillation SNOMED: 405708906 (4) Sick sinus syndrome ICD Codes: I49.5 - Sick sinus syndrome SNOMED: 49840670 (5) GERD (gastroesophageal reflux disease) Assessment & Plan: Patient describes reflux symptoms with epigastric discomfort leading in the mid chest to a foul taste in her mouth with reflux. Will start PPI. Patient needs to be sitting up while taking an oral diet. ICD Codes: K21.9 - Gastro-esophageal reflux disease without esophagitis SNOMED: 140439645 (6) Hypoglycemia ICD Codes: E16.2 - Hypoglycemia, unspecified SNOMED: 274955803 (7) HTN (hypertension) ICD Codes: I10 - Essential (primary) hypertension SNOMED: 97814450 (8) Pacemaker ICD Codes: Z95.0 - Presence of cardiac pacemaker SNOMED: 196700986, 126943275 (9) HLD (hyperlipidemia) ICD Codes: E78.5 - Hyperlipidemia, unspecified SNOMED: 32492621 (10) GALEN (obstructive sleep apnea) ICD Codes: G47.33 - Obstructive sleep apnea (adult) (pediatric) SNOMED: 01880876 (11) Acute encephalopathy ICD Codes: G93.40 - Encephalopathy, unspecified SNOMED: 2128501 Richard aHrrell Apr 06, 2019 12:44
--- NOTE | 2019-04-06 13:46 | NUR ---
RADIOLOGY DEPT., CHEST X-RAY DONE.-P.DYE
--- NOTE | 2019-04-06 15:19 | Diagnostic Imaging Report ---
Indication: Chest pain Comparison: 05/17/2017 A single view chest radiograph was obtained. Findings: Cardiomediastinal appearance is within normal limits for age. Pacemaker noted. The lungs are clear. Pulmonary vascularity is appropriate. The diaphragmatic contour is smooth and costophrenic angles are sharp. No pleural effusions are identified. The bones are osteopenic. Impression: No acute findings
[2019-04-06] MEDS: Xarelto 10mg tab ORAL SCH (15:59)
[2019-04-06 16:00] VITALS: BP 143/79
--- NOTE | 2019-04-06 19:38 | NUR ---
HAND-OFF: Report given to Halima Lozoya.Patient stable.
--- NOTE | 2019-04-06 19:39 | General Progress Note ---
Assessment/Plan Status: stable Assessment/Plan: 78 female with pmh of HTN, HLD, pAfib, sick sinus syndrome s/p dual-chamber pacemaker implantation (March 2012), GERD, GALEN admitted to r/o ACS #Chest pain, atypical, r/o ACS -serial troponins and EKG - unremarkable -Cardiology consult -admit to tele -cardiac diet -pain control #Paraxysmal atrial fibrillation #Sick sinus s/p DCPM -rate controlled -Cont metoprolol -cont xarelto -tele monitoring -cardiology consulted #GERD -cont PPT Code: Senior Research Scientist of note may not reflect time of encounter Subjective Date patient seen: Apr 06, 2019 Allergies: Coded Allergies: PENICILLINS (Verified Allergy, Mild, 08/30/10) SHELLFISH (Verified Allergy, Mild, 08/30/10) SULFA (SULFONAMIDE ANTIBIOTICS) (Verified Allergy, Mild, 08/30/10) PROCAINE (Unverified Allergy, Unknown, 01/22/17) IODINE (Verified Adverse Reaction, Severe, HYPERSENSATIVITY TO CONTRAST, ) LAST TIME PT WAS GIVEN CONTRAST, SHE HAD TO BE GIVEN HIGH DOSE CORTICOSTEROID, PER PT ORDER ADHESIVE TAPE (Verified Adverse Reaction, Intermediate, DRY, ITCHY SKIN, ) PER PT ORDER Uncoded Allergies: NOVACAINE (Allergy, Mild, 08/30/10) TAPE (Allergy, Unknown, 05/17/17) Subjective No acute overnight events, still complaining of chest discomfort likely MSK. has no other complaints. Objective Last 24 Hour Vital Signs Date Time Temp Pulse Resp B/P (MAP) Pulse Ox O2 Delivery O2 Flow Rate FiO2 04/06/19 16:00 98.6 72 20 143/79 (100) 94 04/06/19 16:00 85 04/06/19 12:00 67 04/06/19 12:00 97.9 66 22 131/81 (98) 97 04/06/19 09:00 Room Air 04/06/19 08:30 80 123/89 04/06/19 08:00 76 04/06/19 08:00 98.3 80 22 123/89 (100) 97 04/06/19 04:00 97.7 69 18 143/80 (101) 98 04/06/19 03:51 68 04/06/19 00:00 77 7/11/19 00:00 98.5 68 18 115/65 (82) 96 04/05/19 21:00 Room Air 04/05/19 20:00 68 04/05/19 20:00 98.1 119/56 (77) 97 Intake and Output 04/05/19 04/06/19 19:00 07:00 # Voids 3 Height (Feet): 5 Height (Inches): 3.00 Weight (Pounds): 193 Objective General appearance: alert, cooperative, no distress, appears stated age Head: Normocephalic, without obvious abnormality, atraumatic Eyes: conjunctivae/corneas clear. PERRL, EOM's intact. Fundi benign Throat: Lips, mucosa, and tongue normal. Teeth and gums normal Neck: supple, symmetrical, trachea midline, no adenopathy, thyroid: not enlarged, symmetric, no tenderness/mass/nodules, no carotid bruit and no JVD Lungs/Chest: clear to auscultation bilaterally, b/l chest TTP Heart: regular rate and rhythm, S1, S2 normal, no murmur, click, rub or gallop Abdomen: soft, non-tender. Bowel sounds normal. No masses, no organomegaly Extremities: extremities normal, atraumatic, no cyanosis or edema Pulses: 2+ and symmetric Skin: Skin color, texture, turgor normal. No rashes or lesions Neurologic: Grossly normal Madeline Gonzales MD Apr 06, 2019 19:39
--- NOTE | 2019-04-06 19:40 | NUR ---
NURSE NOTES: Patient awake, upright in bed. no signs or symptoms of distress. Bed locked in lowest position, side rails X2 up, call gallo within reached. will monitor. Addendum: 04/06/19 at 2033 by Halima Gutierrez RN Bed alarm on.
[2019-04-06 20:00] VITALS: BP 132/67
--- NOTE | 2019-04-06 20:14 | Neurology Progress Note ---
Interim History Interim History ROS Limited/Unobtainable: No Interim History RYAN much improved Ambulated Objective Physical Exam Last Vital Signs Date Time Temp Pulse Resp B/P (MAP) Pulse Ox O2 Delivery O2 Flow Rate FiO2 04/06/19 16:00 98.6 72 20 143/79 (100) 94 04/06/19 09:00 Room Air Head: normocophalic Neck: no rigidity EENT: benign Neurologic Exam Mental Status: awake, alert, oriented x4, normal cognition, good mathematical skills, normal recent memory, normal remote memory, preserved visuospatial function Speech: normal speech, no dysarthia Language: normal language, no aphasia Cranial Nerve II: fundus normal, visual barrera, no papilledema Cranial Nerves III, IV, : PERRLA, EOMI, pupils Cranial Nerve V: normal facial sensations, temporales function normal, masseters function normal, pterygoids function normal Cranial Nerve VII: no facial asymmetry, normal facial expressions Cranial Nerve VIII: normal hearing, no nystagmus Cranial Nerve IX: normal palate elevation, gag response Cranial Nerve X: no voice hoarseness Cranial Nerve XI: SCM symmetric, trapezii function normal Cranial Nerve XII: tongue midline, no tongue atrophy/fasciculations Motor System: normal muscle tone, strength 5/5, no involuntary movement, no muscle wasting Sensory: normal pinprick, normal light touch, normal position sense, normal graphesthesia Coordination: normal finger to nose bilaterally, normal heel to priest bilaterally, negative Romberg test Deep Tendon Reflexes: 2+ bicep (L), 2+ bicep (R), 2+ tricep (L), 2+ tricep (R) , 2+ brachioradialis (L), 2+ brachioradialis (R), 2+ knee (L), 2+ knee (R), 2+ ankle (L), 2+ ankle (R) Stance: normal Gait: stable, normal regular, heel + toe gait Impression/Recommendations Problems: (1) Sick sinus syndrome (2) GERD (gastroesophageal reflux disease) (3) HTN (hypertension) (4) Pacemaker (5) Acute encephalopathy (6) Hypoglycemia (7) HLD (hyperlipidemia) (8) GALEN (obstructive sleep apnea) (9) ACS (acute coronary syndrome) (10) Chest pain (11) Paroxysmal a-fib Status: stable Diagnostic Impression headache with migrane features IVFs sleep higiene tylenol for pain can use morphine prn Margarito Mattson MD Apr 06, 2019 20:14
[2019-04-06] MEDS: Atorvastatin 80mg tab ORAL SCH (22:03)
--- NOTE | 2019-04-06 23:01 | Consultation ---
History of Present Illness General Date patient seen: Apr 06, 2019 Time patient seen: 19:58 Chief Complaint: Chest Pain Present Illness HPI 78-year-old female presented after increased pleuritic type chest pain. Patient reports having increased discomfort is as well as increased headache. She had been noted to be taking anticoagulation. Pain was worse with movement and palpation. headache - ct brain no hemorrhage Troponn negative, TTE with preserved LV function, multiple cardiac risk factors HTN, HLD. PPM. Allergies: Coded Allergies: PENICILLINS (Verified Allergy, Mild, 08/30/10) SHELLFISH (Verified Allergy, Mild, 08/30/10) SULFA (SULFONAMIDE ANTIBIOTICS) (Verified Allergy, Mild, 08/30/10) PROCAINE (Unverified Allergy, Unknown, 01/22/17) IODINE (Verified Adverse Reaction, Severe, HYPERSENSATIVITY TO CONTRAST, ) LAST TIME PT WAS GIVEN CONTRAST, SHE HAD TO BE GIVEN HIGH DOSE CORTICOSTEROID, PER PT ORDER ADHESIVE TAPE (Verified Adverse Reaction, Intermediate, DRY, ITCHY SKIN, ) PER PT ORDER Uncoded Allergies: NOVACAINE (Allergy, Mild, 08/30/10) TAPE (Allergy, Unknown, 05/17/17) Medication History Scheduled Cholecalciferol (Vitamin D3)* (Vitamin D*), 2,000 UNITS ORAL DAILY, (Reported) Cyanocobalamin (Vitamin B-12) (B-12), 1,000 MCG PO DAILY, (Reported) Esomeprazole Magnesium (Nexium), 40 MG ORAL DAILY, (Reported) Hydrochlorothiazide* (Hydrochlorothiazide*), 12.5 MG ORAL DAILY, (Reported) Metoprolol Tartrate* (Metoprolol Tartrate*), 25 MG ORAL EVERY 12 HOURS, ( Reported) Mu-Vits-Min Th/Lycopene/Lutein (Centrum Silver Tablet), 1 EACH PO DAILY, ( Reported) Olmesartan Medoxomil (Benicar), 5 MG ORAL DAILY, (Reported) Olopatadine Hcl (Pataday), 2.5 ML OP DAILY, (Reported) Polyvinyl Alcohol/Povidone/Pf (Refresh Classic Eye Drops), 1 EACH OP BID, ( Reported) Rivaroxaban (Xarelto*), 20 MG ORAL DAILY, (Reported) Simvastatin (Zocor), 40 MG ORAL BEDTIME, (Reported) Miscellaneous Medications Potassium Gluconate (Potassium), 10 MG PO, (Reported) Patient History Healthcare decision maker Resuscitation status Full Code Advanced Directive on File No Review of Systems Constitutional: Reports: no symptoms Eye: Reports: no symptoms ENT: Reports: no symptoms Respiratory: Reports: no symptoms Cardiovascular: Reports: chest pain Gastrointestinal: Reports: no symptoms Genitourinary: Reports: no symptoms Musculoskeletal: Reports: no symptoms Skin: Reports: no symptoms Psychiatric: Reports: no symptoms Neurological: Reports: no symptoms Endocrine: Reports: no symptoms Hematologic/Lymphatic: Reports: no symptoms Physical Exam General Appearance: no apparent distress, alert Lines, tubes and drains: peripheral HEENT: normocephalic Neck: non-tender, normal alignment, supple, normal inspection Respiratory/Chest: chest wall non-tender, lungs clear, normal breath sounds, no respiratory distress Cardiovascular/Chest: normal peripheral pulses, normal rate, regular rhythm Abdomen: normal bowel sounds, non tender, soft, no organomegaly, no mass Extremities: normal range of motion, non-tender, normal inspection, normal capillary refill Skin Exam: normal pigmentation, warm/dry, cyanotic 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, no motor/sensory deficits Last 24 Hour Vital Signs Date Time Temp Pulse Resp B/P (MAP) Pulse Ox O2 Delivery O2 Flow Rate FiO2 04/06/19 21:11 Room Air 04/06/19 20:00 98.0 69 18 132/67 (88) 95 04/06/19 16:00 98.6 72 20 143/79 (100) 94 04/06/19 16:00 85 04/06/19 12:00 67 04/06/19 12:00 97.9 66 22 131/81 (98) 97 04/06/19 09:00 Room Air 04/06/19 08:30 80 123/89 04/06/19 08:00 76 04/06/19 08:00 98.3 80 22 123/89 (100) 97 04/06/19 04:00 97.7 69 18 143/80 (101) 98 04/06/19 03:51 68 04/06/19 00:00 77 04/06/19 00:00 98.5 68 18 115/65 (82) 96 Intake and Output 04/05/19 04/06/19 19:00 07:00 # Voids 3 Height (Feet): 5 Height (Inches): 3.00 Weight (Pounds): 193 Medications Current Medications Medications (Trade) Dose Ordered Sig/Kenneth Route PRN Reason Start Time Stop Time Status Last Admin Dose Admin Artificial Tears (Akwa-Tears) 1 drop QIDPRN PRN BOTH EYES dry eyes 04/06/19 07:45 05/06/19 07:44 Atorvastatin Calcium (Lipitor) 80 mg BEDTIME ORAL 04/05/19 21:00 05/05/19 20:59 04/06/19 22:03 Cyanocobalamin (Vitamin B-12) 1,000 mcg DAILY ORAL 04/05/19 09:00 05/05/19 08:59 04/06/19 08:29 Hydrochlorothiazide (Hydrodiuril) 12.5 mg DAILY ORAL 04/07/19 09:00 05/07/19 08:59 Iopamidol (Isovue-370 150ml) 150 ml NOW PRN INJ Radiology Procedure 04/04/19 23:15 04/06/19 23:11 Ketotifen Fumarate (Zatidor) 1 drop DAILY BOTH EYES 04/06/19 09:00 05/06/19 08:59 04/06/19 08:30 Metoprolol Succinate (Toprol XL) 25 mg DAILY ORAL 04/05/19 09:00 05/05/19 08:59 04/06/19 08:30 Rivaroxaban (Xarelto) 20 mg DAILY@1630 ORAL 04/05/19 16:30 05/05/19 16:29 04/06/19 15:59 Vitamin D (Vitamin D) 2,000 intlu DAILY ORAL 04/05/19 09:00 05/05/19 08:59 04/06/19 08:29 Assessment/Plan Status: stable Assessment/Plan: Impression/Recommendations Problems: (1) Sick sinus syndrome (2) GERD (gastroesophageal reflux disease) (3) HTN (hypertension) (4) Pacemaker (5) Acute encephalopathy (6) Hypoglycemia (7) HLD (hyperlipidemia) (8) GALEN (obstructive sleep apnea) (9) ACS (acute coronary syndrome) (10) Chest pain (11) Paroxysmal a-fib PLAN: Given multiple cardiac risk factors will opt for stress test for further evaluation Continue current Rx Nitro prn chest pain Hold heparin Continue anticoagulation for AFIB Outpatient pacemaker interrogation Echocardiogram reviewed, normal LV function Check CRP/ESR for pericarditis/costochondritis Pain control PPI BID Arcadio Simmons MD Apr 06, 2019 23:01
[2019-04-07] VITALS: BP 131/65
[2019-04-07 04:00] VITALS: BP 158/78
[2019-04-07] MEDS ORDERED: Lexiscan 0.4mg/5ml syringe IV SCH (06:00)
[2019-04-07 07:01] LABS: BASOPHILS % (AUTO) 0.7 % (0.0-2.0); EOSINOPHILS % (AUTO) 7.4 % (0.0-3.0); HEMOGLOBIN 13.4 G/DL (12.0-16.0); LYMPHOCYTES % (AUTO) 42.3 % (20.0-45.0); MEAN CORPUSCULAR VOLUME 99 FL (80-99); MONOCYTES % (AUTO) 14.6 % (1.0-10.0); PLATELET COUNT 201 K/UL (150-450); RED BLOOD COUNT 4.04 M/UL (4.20-5.40); RED CELL DISTRIBUTION WIDTH 12.6 % (11.6-14.8); WHITE BLOOD COUNT 5.8 K/UL (4.8-10.8)
--- NOTE | 2019-04-07 07:26 | NUR ---
HAND-OFF: Report given to FEDERICO Carr.
[2019-04-07] MEDS ORDERED: Lexiscan 0.4mg/5ml syringe IV PRN (07:45)
[2019-04-07 07:48] LABS: ANION GAP 11 mmol/L (5-15); BLOOD UREA NITROGEN 24 mg/dL (7-18); CALCIUM 9.4 MG/DL (8.5-10.1); CARBON DIOXIDE 24 MMOL/L (21-32); CHLORIDE 104 MMOL/L (98-107); PHOSPHORUS 3.7 MG/DL (2.5-4.9); POTASSIUM 3.9 MMOL/L (3.5-5.1); SODIUM 139 MMOL/L (136-145)
--- NOTE | 2019-04-07 07:49 | NUR ---
NURSE NOTES: Received report from FEDERICO Varghese. Pt in bed, awake, talkative, discussed plan of care and planned Stress Test for today. Pt has signed consent and ready for procedure. Pt is calm, no complaints of pain, bed in lowest position call light within reach. Spoke to Bhanu from cardiology. Pt has JIMMY ordered, but [facility]. Need to contact Dr. Gonzales to clarify.
--- NOTE | 2019-04-07 07:55 | NUR ---
NURSE NOTES: Asked Dr. Gonzales for clarification regarding JIMMY order for CP. Notified Dr. Gonzales 2-D echo done 04/05 with 60% EF result. Dr. Gonzales stated to cancel JIMMY order.
[2019-04-07 08:00] VITALS: BP 146/82
--- NOTE | 2019-04-07 08:33 | NUR ---
NURSE NOTES: According to Bhanu in cardiology, need to asked is HTN medications need to be held for stress test. RN Left message at Dr. Simmons's office asking about holding Metoprolol and Hydrochlorothiazide am doses. Rn will hold until Dr. Simmons says otherwise.
[2019-04-07] MEDS: Vitamin B-12 500mcg tab ORAL SCH (08:45)
[2019-04-07] MEDS: Vitamin D 1000 IU Tab ORAL SCH (08:45)
[2019-04-07] MEDS: Ketotifen Fumarate 0.035% 5ml BOTH EYES SCH (08:45)
[2019-04-07] MEDS: hydroCHLOROthiazide 12.5mg TAB ORAL SCH ×2 (09:00→16:59)
[2019-04-07] MEDS: Metoprolol Succinate XL 25mg tab ORAL SCH ×2 (09:00→16:59)
--- NOTE | 2019-04-07 11:15 | NUR ---
NURSE NOTES: Spoke with boni Chan to hold BP meds until stress test is complete
--- NOTE | 2019-04-07 11:42 | Cardiology Progress Note ---
Assessment/Plan Status: stable Assessment/Plan Impression/Recommendations Problems: (1) Sick sinus syndrome (2) GERD (gastroesophageal reflux disease) (3) HTN (hypertension) (4) Pacemaker (5) Acute encephalopathy (6) Hypoglycemia (7) HLD (hyperlipidemia) (8) GALEN (obstructive sleep apnea) (9) ACS (acute coronary syndrome) (10) Chest pain (11) Paroxysmal a-fib PLAN: Given multiple cardiac risk factors will opt for stress test for further evaluation Continue current Rx Nitro prn chest pain Hold heparin Continue anticoagulation for AFIB Outpatient pacemaker interrogation Echocardiogram reviewed, normal LV function Check CRP/ESR for pericarditis/costochondritis Pain control PPI BID Subjective Cardiovascular: Reports: no symptoms Respiratory: Reports: no symptoms Gastrointestinal/Abdominal: Reports: no symptoms Genitourinary: Reports: no symptoms Subjective NO acute events, for stress test today Objective Last 24 Hour Vital Signs Date Time Temp Pulse Resp B/P (MAP) Pulse Ox O2 Delivery O2 Flow Rate FiO2 04/07/19 09:00 68 146/82 04/07/19 09:00 Room Air 04/07/19 08:00 97.8 68 18 146/82 (103) 95 04/07/19 07:40 64 04/07/19 04:00 65 04/07/19 04:00 98.1 68 18 158/78 (104) 95 04/07/19 00:00 98.2 68 18 131/65 (87) 96 04/07/19 00:00 68 04/06/19 21:11 Room Air 04/06/19 20:00 62 04/06/19 20:00 98.0 69 18 132/67 (88) 95 04/06/19 16:00 98.6 72 20 143/79 (100) 94 04/06/19 16:00 85 04/06/19 12:00 67 04/06/19 12:00 97.9 66 22 131/81 (98) 97 General Appearance: no apparent distress, alert EENT: PERRL/EOMI, normal ENT inspection, TMs normal, pharynx normal Neck: non-tender, normal alignment, supple, normal inspection, no JVD Rhythm: NSR Cardiovascular: normal peripheral pulses, normal rate, regular rhythm Respiratory/Chest: chest wall non-tender, lungs clear, normal breath sounds, no respiratory distress Abdomen: normal bowel sounds, non tender, soft, no organomegaly, no mass Extremities: normal range of motion, non-tender, normal inspection, no calf tenderness, no swelling 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, no motor/sensory deficits Intake and Output 04/06/19 04/07/19 19:00 07:00 # Voids 2 2 Laboratory Tests Test 04/07/19 05:45 White Blood Count 5.8 K/UL (4.8-10.8) Red Blood Count 4.04 M/UL (4.20-5.40) L Hemoglobin 13.4 G/DL (12.0-16.0) Hematocrit 40.0 % (37.0-47.0) Mean Corpuscular Volume 99 FL (80-99) Mean Corpuscular Hemoglobin 33.3 PG (27.0-31.0) H Mean Corpuscular Hemoglobin Concent 33.6 G/DL (32.0-36.0) Red Cell Distribution Width 12.6 % (11.6-14.8) Platelet Count 201 K/UL (150-450) Mean Platelet Volume 7.9 FL (6.5-10.1) Neutrophils (%) (Auto) 35.0 % (45.0-75.0) L Lymphocytes (%) (Auto) 42.3 % (20.0-45.0) Monocytes (%) (Auto) 14.6 % (1.0-10.0) H Eosinophils (%) (Auto) 7.4 % (0.0-3.0) H Basophils (%) (Auto) 0.7 % (0.0-2.0) Erythrocyte Sedimentation Rate 38 MM/HR (0-30) H Sodium Level 139 MMOL/L (136-145) Potassium Level 3.9 MMOL/L (3.5-5.1) Chloride Level 104 MMOL/L (98-107) Carbon Dioxide Level 24 MMOL/L (21-32) Anion Gap 11 mmol/L (5-15) Blood Urea Nitrogen 24 mg/dL (7-18) H Creatinine 1.0 MG/DL (0.55-1.30) Estimat Glomerular Filtration Rate mL/min (>60) Glucose Level 91 MG/DL (74-106) Calcium Level 9.4 MG/DL (8.5-10.1) Phosphorus Level 3.7 MG/DL (2.5-4.9) Magnesium Level 1.8 MG/DL (1.8-2.4) C-Reactive Protein, Quantitative < 0.4 mg/dL (0.00-0.90) Arcadio Simmons MD Apr 07, 2019 11:42
[2019-04-07 12:00] VITALS: BP 155/83
--- NOTE | 2019-04-07 13:36 | Surgery Progress Note ---
Surgery Progress Note Subjective Additional Comments no acute events echo noted labs okay pending stress test as per cardio Objective Last 24 Hour Vital Signs Date Time Temp Pulse Resp B/P (MAP) Pulse Ox O2 Delivery O2 Flow Rate FiO2 04/07/19 12:00 98.4 69 16 155/83 (107) 97 04/07/19 09:00 68 146/82 04/07/19 09:00 Room Air 04/07/19 08:00 97.8 68 18 146/82 (103) 95 04/07/19 07:40 64 04/07/19 04:00 65 04/07/19 04:00 98.1 68 18 158/78 (104) 95 04/07/19 00:00 98.2 68 18 131/65 (87) 96 04/07/19 00:00 68 04/06/19 21:11 Room Air 04/06/19 20:00 62 04/06/19 20:00 98.0 69 18 132/67 (88) 95 04/06/19 16:00 98.6 72 20 143/79 (100) 94 04/06/19 16:00 85 I&O Intake and Output 04/06/19 04/07/19 19:00 07:00 # Voids 2 2 Cardiovascular: RSR Respiratory: clear Abdomen: soft, flat, non-tender, present bowel sounds Extremities: no edema, no tenderness, no cyanosis Laboratory Tests Test 04/07/19 05:45 White Blood Count 5.8 K/UL (4.8-10.8) Red Blood Count 4.04 M/UL (4.20-5.40) L Hemoglobin 13.4 G/DL (12.0-16.0) Hematocrit 40.0 % (37.0-47.0) Mean Corpuscular Volume 99 FL (80-99) Mean Corpuscular Hemoglobin 33.3 PG (27.0-31.0) H Mean Corpuscular Hemoglobin Concent 33.6 G/DL (32.0-36.0) Red Cell Distribution Width 12.6 % (11.6-14.8) Platelet Count 201 K/UL (150-450) Mean Platelet Volume 7.9 FL (6.5-10.1) Neutrophils (%) (Auto) 35.0 % (45.0-75.0) L Lymphocytes (%) (Auto) 42.3 % (20.0-45.0) Monocytes (%) (Auto) 14.6 % (1.0-10.0) H Eosinophils (%) (Auto) 7.4 % (0.0-3.0) H Basophils (%) (Auto) 0.7 % (0.0-2.0) Erythrocyte Sedimentation Rate 38 MM/HR (0-30) H Sodium Level 139 MMOL/L (136-145) Potassium Level 3.9 MMOL/L (3.5-5.1) Chloride Level 104 MMOL/L (98-107) Carbon Dioxide Level 24 MMOL/L (21-32) Anion Gap 11 mmol/L (5-15) Blood Urea Nitrogen 24 mg/dL (7-18) H Creatinine 1.0 MG/DL (0.55-1.30) Estimat Glomerular Filtration Rate mL/min (>60) Glucose Level 91 MG/DL (74-106) Calcium Level 9.4 MG/DL (8.5-10.1) Phosphorus Level 3.7 MG/DL (2.5-4.9) Magnesium Level 1.8 MG/DL (1.8-2.4) C-Reactive Protein, Quantitative < 0.4 mg/dL (0.00-0.90) Plan Problems: (1) ACS (acute coronary syndrome) (2) Chest pain Assessment & Plan: This is a 78-year-old female with atypical chest pain and headache and reflux symptoms. Able to reproduce chest pain with palpation of both right and left thorax. Left thorax more tender than right. No renographic or evidence of fractures. Pain mainly muscular in nature as per description from patient's history. Troponins negative. Does not seem to be having a acute coronary event and more likely does seem to be costochondritis. Nonsteroidal anti-inflammatory for pain control Tylenol okay as well. Physical therapy occupational therapy Diet as tolerated cardiology input appreciated echo noted pending stress test Thank you for this consultation we will follow with recognitions (3) Paroxysmal a-fib (4) Sick sinus syndrome (5) GERD (gastroesophageal reflux disease) Assessment & Plan: Patient describes reflux symptoms with epigastric discomfort leading in the mid chest to a foul taste in her mouth with reflux. Will start PPI. Patient needs to be sitting up while taking an oral diet. (6) Hypoglycemia (7) HTN (hypertension) (8) Pacemaker (9) HLD (hyperlipidemia) (10) GALEN (obstructive sleep apnea) (11) Acute encephalopathy Richard Harrell Apr 07, 2019 13:36
--- NOTE | 2019-04-07 14:18 | NUR ---
NURSE NOTES: Dr. Miner interviewing pt for Stress Test Lexiscan 1419: Medications injected by Edwin from [place], 1420 Test start time [address] Miner [address] Miner BP 145/92 HR 103 Pt states she feels "no good, feeling funning in my head." [address] Miner, BP 110/67 HR 99, Pt states "I feel about the same." 1424 BP 118/69 HR 97 End of test. 1427" Pt given lunch tray, call light within reach, bed in lowest position, pt is calm, states she feels "much better"
--- NOTE | 2019-04-07 14:40 | NUR ---
CASE MANAGEMENT:REVIEW 04/07/19 SI: ACS. PAFIB 98.4 69 16 155/83 97% ON RA BUN+24 IS: IV LEXISCAN X1 HCTZ PO QD XARELTO PO QD B12 PO QD TOPROL PO QD : TELEMETRY STATUS DCP: FROM HOME PLAN: STRESS TEST SCHEDULED FOR TODAY
--- NOTE | 2019-04-07 15:58 | Neurology Progress Note ---
Interim History Interim History ROS Limited/Unobtainable: No Interim History minimal RYAN this am, ambulating stress test today Objective Physical Exam Last Vital Signs Date Time Temp Pulse Resp B/P (MAP) Pulse Ox O2 Delivery O2 Flow Rate FiO2 04/07/19 12:00 98.4 69 16 155/83 (107) 97 04/07/19 09:00 Room Air Laboratory Tests Test 04/07/19 05:45 White Blood Count 5.8 K/UL (4.8-10.8) Red Blood Count 4.04 M/UL (4.20-5.40) L Hemoglobin 13.4 G/DL (12.0-16.0) Hematocrit 40.0 % (37.0-47.0) Mean Corpuscular Volume 99 FL (80-99) Mean Corpuscular Hemoglobin 33.3 PG (27.0-31.0) H Mean Corpuscular Hemoglobin Concent 33.6 G/DL (32.0-36.0) Red Cell Distribution Width 12.6 % (11.6-14.8) Platelet Count 201 K/UL (150-450) Mean Platelet Volume 7.9 FL (6.5-10.1) Neutrophils (%) (Auto) 35.0 % (45.0-75.0) L Lymphocytes (%) (Auto) 42.3 % (20.0-45.0) Monocytes (%) (Auto) 14.6 % (1.0-10.0) H Eosinophils (%) (Auto) 7.4 % (0.0-3.0) H Basophils (%) (Auto) 0.7 % (0.0-2.0) Erythrocyte Sedimentation Rate 38 MM/HR (0-30) H Sodium Level 139 MMOL/L (136-145) Potassium Level 3.9 MMOL/L (3.5-5.1) Chloride Level 104 MMOL/L (98-107) Carbon Dioxide Level 24 MMOL/L (21-32) Anion Gap 11 mmol/L (5-15) Blood Urea Nitrogen 24 mg/dL (7-18) H Creatinine 1.0 MG/DL (0.55-1.30) Estimat Glomerular Filtration Rate mL/min (>60) Glucose Level 91 MG/DL (74-106) Calcium Level 9.4 MG/DL (8.5-10.1) Phosphorus Level 3.7 MG/DL (2.5-4.9) Magnesium Level 1.8 MG/DL (1.8-2.4) C-Reactive Protein, Quantitative < 0.4 mg/dL (0.00-0.90) Head: normocophalic Neck: no rigidity EENT: benign Neurologic Exam Mental Status: awake, alert, oriented x4, normal cognition, good mathematical skills, normal recent memory, normal remote memory, preserved visuospatial function Speech: normal speech, no dysarthia Language: normal language, no aphasia Cranial Nerve II: fundus normal, visual barrera, no papilledema Cranial Nerves III, IV, : PERRLA, EOMI, pupils Cranial Nerve V: normal facial sensations, temporales function normal, masseters function normal, pterygoids function normal Cranial Nerve VII: no facial asymmetry, normal facial expressions Cranial Nerve VIII: normal hearing, no nystagmus Cranial Nerve IX: normal palate elevation, gag response Cranial Nerve X: no voice hoarseness Cranial Nerve XI: SCM symmetric, trapezii function normal Cranial Nerve XII: tongue midline, no tongue atrophy/fasciculations Motor System: normal muscle tone, strength 5/5, no involuntary movement, no muscle wasting Sensory: normal pinprick, normal light touch, normal position sense, normal graphesthesia Coordination: normal finger to nose bilaterally, normal heel to priest bilaterally, negative Romberg test Deep Tendon Reflexes: 2+ bicep (L), 2+ bicep (R), 2+ tricep (L), 2+ tricep (R) , 2+ brachioradialis (L), 2+ brachioradialis (R), 2+ knee (L), 2+ knee (R), 2+ ankle (L), 2+ ankle (R) Stance: normal Gait: stable, normal regular, heel + toe gait Impression/Recommendations Problems: (1) Sick sinus syndrome (2) GERD (gastroesophageal reflux disease) (3) HTN (hypertension) (4) Pacemaker (5) Acute encephalopathy (6) Hypoglycemia (7) HLD (hyperlipidemia) (8) GALEN (obstructive sleep apnea) (9) ACS (acute coronary syndrome) (10) Chest pain (11) Paroxysmal a-fib Status: stable Diagnostic Impression headache with migrane features IVFs sleep higiene tylenol for pain can use morphine Margarito Hays MD Apr 07, 2019 15:58
[2019-04-07 16:00] VITALS: BP 139/70
--- NOTE | 2019-04-07 16:05 | NUR ---
INSURANCE UPDATED CLINICALS and REVIEW HAVE BEEN FAXED TO: [facility] [phone] NO DATA REVIEW SPECIALIST ASSIGNED AT THIS TIME. PLEASE FAX THE REVIEW/CLINICAL FX: [phone]
--- NOTE | 2019-04-07 16:08 | NUR ---
Myocardial Perfusion scan complete.
--- NOTE | 2019-04-07 16:48 | Diagnostic Imaging Report ---
Indication: chest pain Technique: The study was conducted under the supervision of a electric knife operator. lexiscan (regadenoson) infusion over 10 seconds followed by intravenous administration of 31.1 mCi of technetium 99m Myoview was performed. Three plane SPECT imaging of the heart was then performed. A resting study was performed as part of the one-day protocol with 10.9 mCi of technetium 99m myoview injected intravenously at that time. Three plane SPECT imaging of the heart was obtained. Comparison: None Clinical data: 1. Clinical response: Non ischemic 2. Electrocardiographic response: Non ischemic Findings: The myocardial perfusion scan demonstrates no definite fixed or reversible perfusion defects. LVEF estimated at 72%. IMPRESSION: Negative myocardial perfusion
[2019-04-07 16:59] VITALS: BP 139/70
[2019-04-07] MEDS: Xarelto 10mg tab ORAL SCH (17:00)
--- NOTE | 2019-04-07 17:00 | NUR ---
NURSE NOTES: Administered Metoprolol and Hydrochlorithiazide at 1700 per pt request. Medication were held at 0900 due to pending IV Lexiscan stress test and NPO status.
--- NOTE | 2019-04-07 17:52 | NUR ---
NURSE NOTES: Called Dr. Simmons regarding NM Stress test results negative, Dr. Simmons cleared pt for DC. Notified Dr. Gonzales of negative stress test, asked about DC. Dr. Gonzales stated pt is cleared for DC and will enter order.
--- NOTE | 2019-04-07 18:04 | Discharge Instructions ---
Discharge Instructions Discharge Instructions Follow up with: pcp Diet: cardiac 2 GM Na, low fat Resume Normal Activity?: Yes Activity: resume normal activities For Congestive Heart Failure Reminder Report to your physician any weight gain of 5 pounds or more in one week. Madeline Gonzales MD Apr 07, 2019 18:04
--- NOTE | 2019-04-07 18:05 | Discharge Summary ---
Discharge Summary Hospital Course Date of Admission Apr 05, 2019 at 01:21 Date of Discharge Admitting Diagnosis chest pain, acs HPI Maddi Low is a 78 year old female who was admitted on Apr 05, 2019 at 01: 21 for Chest Pain/Acute Coronary Syndrome Hospital Course 78 female with pmh of HTN, HLD, pAfib, sick sinus syndrome s/p dual-chamber pacemaker implantation (March 2012), GERD, GALEN admitted to r/o ACS #Chest pain, atypical, r/o ACS -serial troponins and EKG - unremarkable -Cardiology consult -admit to tele -cardiac diet -pain control #Paraxysmal atrial fibrillation #Sick sinus s/p DCPM -rate controlled -Cont metoprolol -cont xarelto -tele monitoring -cardiology consulted #GERD -cont PPT Code: Hospice Physician of note may not reflect time of encounter Discharge Discharge Disposition Patient was discharged to Discharge Instructions Discharge Instructions Follow up with: pcp Activity: resume normal activities Madeline Gonzales MD Apr 07, 2019 18:05
--- NOTE | 2019-04-07 19:05 | NUR ---
NURSE NOTES: Rn reviewed all discharge paperwork with pt, pt signed all DC paperwork. 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 IV removed, ID band removed, Tele box returned to systems testing laboratory technician, Alex. 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
--- NOTE | 2019-04-07 19:46 | NUR ---
HAND-OFF: Report given to FEDERICO Beck. Pt in wheelchair, waiting for taxi.
--- NOTE | 2019-04-07 19:47 | NUR ---
NURSE NOTES: Got report from Lilly CABALLERO. Pt in stable condition waiting for taxi for discharge. Continue to monitor.
--- NOTE | 2019-04-10 10:58 | NUR ---
*-* INSURANCE *-* ALL MEDICAL RECORDS HAVE BEEN RE-FAXED TO: [facility] SAPP:[phone]
== END 2019-04-07 19:50 | disposition home or self-care (01) | DRG 311 ==
LOC: EDBD 22:10 → EMR 22:41 → 2E 04-05 01:21 → EDBEDREQ 04-05 01:36
DX: I24.9 Acute ischemic heart disease, unspecified (principal); I10 Essential (primary) hypertension; I48.0 Paroxysmal atrial fibrillation; M94.0 Chondrocostal junction syndrome [Tietze]; Z88.2 Allergy status to sulfonamides; Z88.8 Allergy status to other drugs, medicaments and biological substances; Z88.4 Allergy status to anesthetic agent; Z88.0 Allergy status to penicillin; Z91.013 Allergy to seafood; E78.5 Hyperlipidemia, unspecified; Z95.0 Presence of cardiac pacemaker; Z79.01 Long term (current) use of anticoagulants; K21.9 Gastro-esophageal reflux disease without esophagitis; E16.2 Hypoglycemia, unspecified; G47.33 Obstructive sleep apnea (adult) (pediatric); R51 Headache
CPT/HCPCS: 36415; 70450; 71045; 78452; 80048; 80053; 81003; 82550; 82553; 83690; 83735; 83880; 84100; 84484; 85025; 85379; 85610; 85651; 85730; 86140; 93005; 93017; 93306; 99285; J2785; J8499